=== PATIENT | female | born 1950 | race Caucasian/White ===

== ENCOUNTER → 2018-01-06 08:26 | Outpatient (CLI) | payer BC, MEDICARE, SELFPAY ==
[2018-01-06 11:00] LABS: ALB/GLOB Ratio 0.9 RATIO (0.9-2.4); AST(SGOT) 16 U/L (15-37); Alanine Aminotransfer ALT/SGPT 31 U/L (13-56); Albumin, Serum 3.4 g/dL (3.2-5.0); Alkaline Phosphatase 81 U/L (45-117); Anion Gap 6 (5-15); BUN 15 mg/dL (7-18); BUN/Creat Ratio 20.7 RATIO (10-20); Calcium,Total 8.6 mg/dL (8.5-10.1); Chloride 108 mmol/L (98-107); Cholesterol 184 mg/dL (200); Creatinine, Serum 0.72 mg/dL (0.55-1.02); EST Glomerular Filtration Rate 85 mL/min (>60); Est Glom Filt Rate - Afr Amer 103 mL/min (>60); Globulin 3.6 g/dL (2.2-4.2); Glucose 84 mg/dL (74-106); High Density Lipoprotein 76 mg/dL; Potassium 4.1 mmol/L (3.5-5.1); Sodium Level 144 mmol/L (136-145); Thyroid Stim Hormone (TSH) 0.31 uIU/mL (0.358-3.74); Triglycerides 60 mg/dL; Very Low Density Lipoprotein 12 mg/dL (5-40)
== END ==
PROVIDERS: Family Provider Family Medicine; PCP Family Medicine; Visit Provider Family Medicine
DX: Z00.00 Encounter for general adult medical examination without abnormal findings (principal); C73 Malignant neoplasm of thyroid gland
CPT/HCPCS: 36415; 80053; 80061; 84443; J2405

== ENCOUNTER 2018-01-26 05:59 | Day surgery (SDC) | payer BC, MEDICARE, SELFPAY ==
--- NOTE | 2018-01-26 | VAGMU_PTH ---
PATIENT: RAHCEL HARE [place] [facility] [id number] AGE/SX: 67/F ROOM: RE01/26/[address]: Dr. Nahid Mota MD : [id number] BED: DIS: 01/27/2018 SPEC #: [id number] RECD: 01/26/18 10:15 STATUS: THADDEUS SWANSONJonh #: [id number] MIC: 01/26/18 00:[address]: Nahid Mota DEPT: SURGICAL PATHOLOGY RECD BY: Paul Galeano ENTERED: 01/26/18 10:16 SP TYPE: VAG MUCOSA OTHR DR: Dr. 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 No evidence of dysplasia. Negative for fungal organisms. AM:tommy 01/27/18 COMMENT GMS stain with matched control is negative for fungal organisms. Case has been reviewed in consultation with Dr. Welch who concurs with the above diagnosis. IDC:HUNTER MICROSCOPIC DESCRIPTION Slides are reviewed. GROSS DESCRIPTION Received in fixative is one container labeled with the patient's name and designated vaginal mucosa. The specimen consists of multiple pieces of moctezuma focally congested mucosal tissue that in aggregate measure 10 x 6 x 1.5 cm. No mass lesion is identified. Road Machinery Inspector sections are submitted in two cassettes. / SJ:tommy 01/26/18 TC:2 CPT: 89886, 81699
--- NOTE | 2018-01-26 05:59 | DT_ITS ---
This patient was seen during an EMR downtime January 19, 2018 - January 26, 2018. This patient may have a combination of paper and electronic documentation or all paper documentation. All documentation is viewable within the e-chart portion of [employer] for each patient visit.
[2018-01-26 10:45] VITALS: BP 95/54; PULSE 49; RESP 16; TEMP 36.4; O2SAT 95
[2018-01-26 10:54] VITALS: BMI 20.9
[2018-01-26 10:55] VITALS: PULSE 52
[2018-01-26] MEDS: Dextrose 5%-Lactated Ringers 1,000 ML 125 ML IV ×2 (10:55→18:57)
--- NOTE | 2018-01-26 11:26 | EKG12_ITS ---
Test Reason : PRE-OP Blood Pressure : / mmHG Vent. Rate : 060 BPM Atrial Rate : 060 BPM P-R Int : 146 ms QRS Dur : 088 ms QT Int : 410 ms P-R-T Axes : 082 079 064 degrees QTc Int : 410 ms Normal sinus rhythm Nonspecific T wave abnormality Abnormal ECG When compared with ECG of 29-MAY-2015 13:52, No significant change was found Confirmed by RAPHAEL GONG, JONATAN ([id number]), advertising editor JOSE CARLOS SCHROEDER ([id number]) on 01/29/2018 4:34:27 PM Referred By: Nahid Mota Confirmed By:JONATAN LIM MD
[2018-01-26 12:40] VITALS: BP 98/65; PULSE 53; RESP 16; TEMP 36.4; O2SAT 98
[2018-01-26] MEDS: Ketorolac 15 MG/ML Vial IV ×2 (13:10→18:57)
[2018-01-26 13:34] VITALS: O2SAT 99
[2018-01-26 14:43] VITALS: BP 101/60; PULSE 63; RESP 16; TEMP 36.7; O2SAT 98
--- NOTE | 2018-01-26 16:43 | CASEMGMT ---
Social Work Note Chaplain Naik spoke to this worker about pt. Gumaro states that pt has financial, transportation and legal concerns at this time. Gumaro states that pt's left pt but they never got a divorce and pt's is currently in long-term and receiving a pension, but that pt is unable to receive any of the pension money. 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 Gumaro states that pt has to pay for a cab to take her to and from work. Gumaro states that pt will also have a hospital bill. SW in to meet with pt. SW introduced self and role at [facility]. Pt is alert and orientated x4. SW spoke with pt about her currently difficulties and provided pt with resource packet. SW provided pt with [employer] [place] [address] resource, [facility] [employer] [facility], prescription assistance programs, HCAP application for [facility], and transportation information in [place]. Pt states that she has tried to utilize [employer] but states that she makes too much. SW states understanding and provided support to pt. SW encouraged pt to reach out to resources in the community to see if she is able to get assistance. Pt states understanding. Pt states that she is concerned that she doesn't qualify because she makes too much and that a lot of the places will required her to meet with them at their agency or talk to them on the phone. SW encouraged pt to reach out to local resources to learn more about services offered and see if any of the resources will be able to meet with pt in her home and discuss services. SW asked pt if she would have any family to provide transportation to her if needed to the agencies. Pt states that she used to pay her nephew to take her places but she works second shift and he works first. SW states understanding and once again encouraged pt to reach out to local agencies and resources to utilize any support and resources that pt is able to receive. SW informed pt that she may need to get a equipment operating engineer involved to see what she is entitled to in regards to financial resources from . Pt states understanding. Pt asked for the address of [employer] [facility] [employer]. SW provided pt with address to [employer] [facility] [employer]. Pt denied additional needs or concerns at this time. Plan: Pt to return home at discharge and follow up with local resources if needed. Pt was provided packet of local resources in the community. Blanquita Sheffield SUPERVISOR LOGGING, REHAB CONSULTANT
--- NOTE | 2018-01-26 16:48 | CHAPLAIN ---
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
[2018-01-26] MEDS: 0.9% NaCl Peripheral Flush Adult/Peds IV (18:57)
[2018-01-26 22:25] VITALS: BP 110/47; PULSE 69; RESP 16; TEMP 36.9; O2SAT 95
[2018-01-27] MEDS: Ketorolac 15 MG/ML Vial IV ×2 (00:23→06:13)
[2018-01-27 04:15] VITALS: BP 114/60; PULSE 57; RESP 16; TEMP 36.5; O2SAT 96
[2018-01-27 05:51] LABS: Hematocrit 35.9 % (37-47); Hemoglobin 11.9 g/dl (12.0-15.0); Mean Corp Hgb Conc 33.1 g/gl (32-36); Mean Corpuscular Volume 93.5 fL (81-99); Mean Platelet Vol. 9.7 fl (6.2-12.0); Platelet Count 177 K/mm3 (150-450); RBC Distribution Width CV 13.1 % (11.6-14.6); RBC Distribution Width SD 44.6 fl (35.1-43.9); Red Blood Count 3.84 M/mm3 (4.2-5.4); White Blood Count 7.6 K/mm3 (4.4-11.0)
[2018-01-27 05:59] LABS: Scan Indicated on CBC? Y/N NO
[2018-01-27 06:00] LABS: Hematocrit 42.1 % (37-47); Hemoglobin 14.1 g/dl (12.0-15.0); Mean Corp Hgb Conc 33.5 g/gl (32-36); Mean Corpuscular Hgb 31.8 pg (27.0-32.0); RBC Distribution Width CV 12.9 % (11.6-14.6); Red Blood Count 4.43 M/mm3 (4.2-5.4); White Blood Count 5.6 K/mm3 (4.4-11.0)
[2018-01-27 06:01] LABS: BUN 24 mg/dL (7-18); Glucose 69 mg/dL (74-106); Mean Platelet Vol. 10.1 fl (6.2-12.0); Partial Thromboplast Time 31.4 Seconds (24.1-36.2); Platelet Count 241 K/mm3 (150-450); Prothrombin Time (Protime)PT. 13.3 SECONDS (11.7-14.9); RBC Distribution Width SD 43.6 fl (35.1-43.9); Scan Indicated on CBC? Y/N NO
[2018-01-27 06:02] LABS: AST(SGOT) 17 U/L (15-37); Alanine Aminotransfer ALT/SGPT 30 U/L (13-56); Albumin, Serum 3.5 g/dL (3.2-5.0); Alkaline Phosphatase 88 U/L (45-117); Anion Gap 6 (5-15); BUN/Creat Ratio 32.4 RATIO (10-20); Calcium,Total 8.3 mg/dL (8.5-10.1); Chloride 105 mmol/L (98-107); Creatinine, Serum 0.74 mg/dL (0.55-1.02); EST Glomerular Filtration Rate 83 mL/min (>60); Est Glom Filt Rate - Afr Amer 101 mL/min (>60); Globulin 3.4 g/dL (2.2-4.2); Potassium 4.4 mmol/L (3.5-5.1); Protein, Total 6.9 g/dL (6.4-8.2); Sodium Level 141 mmol/L (136-145); Thyroid Stim Hormone (TSH) 0.59 uIU/mL (0.358-3.74)
[2018-01-27] MEDS: 0.9% NaCl Peripheral Flush Adult/Peds IV ×2 (06:03→06:13)
[2018-01-27 06:12] LABS: Creatinine, Serum 0.82 mg/dL (0.55-1.02); EST Glomerular Filtration Rate 73 mL/min (>60); Est Glom Filt Rate - Afr Amer 88 mL/min (>60)
[2018-01-27] MEDS: Levothyroxine 100 MCG Tablet PO (06:16)
[2018-01-27 07:45] VITALS: O2SAT 96
[2018-01-27 08:37] VITALS: BP 128/63; PULSE 63; RESP 18; TEMP 36.1; O2SAT 98
[2018-01-27 11:09] VITALS: BP 123/73; PULSE 68; RESP 18; TEMP 36.4; O2SAT 100
== END 2018-01-27 11:27 | disposition home or self-care (01) ==
LOC: SDC 06:00 → MS3 01-27 09:56
PROVIDERS: Family Provider Family Medicine; PCP Family Medicine; Visit Provider Obstetrics & Gynecology
PROC: (CPT 57260; principal; 2018-01-26 07:15)
DX: N99.3 Prolapse of vaginal vault after hysterectomy (principal); Z79.899 Other long term (current) drug therapy; E03.9 Hypothyroidism, unspecified; Z85.850 Personal history of malignant neoplasm of thyroid; R00.1 Bradycardia, unspecified; G25.81 Restless legs syndrome
CPT/HCPCS: 57260; 36415; 80053; 82565; 84443; 85027; 85610; 85730; 86850; 86900; 88304; 88312; 93005; J7120; A4216

== ENCOUNTER → 2018-02-03 14:00 | Outpatient (CLI) | payer BC, SELFPAY ==
--- NOTE | 2018-02-03 14:04 | BI_ITS ---
MAMMOGRAPHY - BILATERAL SCREENING REASON FOR EXAM: Female, 67 years old. Routine annual screening examination. PERTINENT HISTORY: Aunt with breast cancer. TECHNIQUE: Digital bilateral breast oskar (3D mammographic acquisition) in the CC and MLO projections. 2-D mediolateral oblique (MLO) and craniocaudad (CC) views of both breasts were obtained. CAD: Full Field Digital Mammography with Computer Added Detection was performed. COMPARISON: Comparison is made with prior outside examination dated May 16, 2017. FINDINGS: Breast Composition: There are scattered areas of fibroglandular density. There are no dominant masses or suspicious calcifications. No other significant abnormalities are identified. There has been no significant change since the prior study. BI/SCREENING MAMM (CAD), BILAT IMPRESSION: Stable bilateral screening mammogram. Yearly follow-up mammogram recommended. (A) ASSESSMENT CATEGORY: BIRADS Category 1: Negative. A letter regarding these results will be sent to the patient by the facility within 30 days. Approximately 10% of breast cancers are not detected by mammography. A normal mammogram should not delay biopsy of a clinically suspicious abnormality. [id number] Electronically Signed: Matt Marion MD at 9:31 EDT Tel [phone], Service support ,
--- NOTE | 2018-02-03 14:15 | BD_ITS ---
STUDY: DUAL ENERGY X-RAY ABSORPTIOMETRY / DXA REASON FOR EXAM: Female, 67 years old. The patient is postmenopausal. Loss of height. TECHNIQUE: Bone Mineral Density (BMD) measurements of lumbar spine and left forearm were obtained. COMPARISON: None. FINDINGS: Lumbar Spine (L1-L4): g/cm2 (1.075) / T-score (-0.9) / Z-score (0.8) Findings are suggestive of normal bone density with a low fracture risk. Left Forearm: g/cm2 (0.744) / T-score (-1.5) / Z-score (0.2) BD/Dexa Bone Density Study IMPRESSION: The patient is considered osteopenic as outlined below according to World John Organization (WHO) criteria with a moderate fracture risk. Reference Information: The T-score is the number of standard deviations above or below the standard which is normal for young adults at their peak bone mineral density. The World Health Organization (WHO) interprets the T-scores as follows: Above -1 Normal bone density Between -1 and -2.5 Osteopenia Equal to / or below -2.5 Osteoporosis As a practical clinical guideline, osteopenia may be graded as follows: Mild -1 through -1.5 Moderate -1.6 through -2.0 Severe -2.1 through -2.4 The Z-score is the number of standard deviations above or below age-matched controls. A Z-score of less than -1.5 would be considered abnormal. References: 1. NIH Osteoporosis and Related Bone Diseases http://www.osteo.org 2. International Society for Clinical Densitometry http://www.iscd.org 3. National Osteoporosis Foundation http://www.nof.org Electronically Signed: Matt Marion MD at 8:51 EDT Tel [phone], Service support ,
== END ==
PROVIDERS: Family Provider Family Medicine; PCP Family Medicine; Visit Provider Family Medicine
DX: Z12.31 Encounter for screening mammogram for malignant neoplasm of breast (principal); N95.9 Unspecified menopausal and perimenopausal disorder
CPT/HCPCS: 77063; 77067; 77080

== ENCOUNTER 2018-05-04 13:34 | Emergency (ER) | payer BC, SELFPAY ==
[2018-05-04 13:34] VITALS: BP 130/71; PULSE 73; RESP 16; TEMP 36.7; O2SAT 97; BMI 21.1
--- NOTE | 2018-05-04 13:49 | ED.VISSUMM ---
- ER Visit Summary Date of Service: 05/04/18 Chief Complaint: Left shoulder itching History of Present Illness: The patient is a 67 F presents to the emergency department with left shoulder itching. Patient states Friday night, she thinks that she was stuck by a wasp. She thinks that there is still stinger in there because she is continued to have itching. She denies any fevers or chills. She has a history of anaphylaxis. The patient is only on thyroid medication. She states she put some rubbing alcohol and it was seem to make the area feel better, but she was still itching today. Physical Examination: Exam is relatively unremarkable. Patient does have a 1.5 cm ovoid area of erythema overlying the left collarbone. There does appear to be retained stinger in the area. There is no streaking. There is no cellulitis. Her lungs are clear. She has no wheezing. Oropharynx is widely patent. Test Results: [] Emergency Department Course and Treatment: The area was anesthetized locally. I did remove the area that seem to be retained invagination. The patient has no significant reaction. She will continue Benadryl and topical treatment as needed. She will be discharged home. Treatment Plan: [] Disposition: Discharge Impression: Local reaction to bee envenomation This note was generated with [employer] dictation software. It may contain incorrect words, spelling, and punctuation that were not noted in review of the chart prior to signing ED Disposition - Plan for ED Patient: Chief Complaint: Itching Instructions: ED Bite Sting Insect Local Allergic React Referrals: Hermann Lopes MD [Primary Care Provider] -
== END 2018-05-04 14:57 | disposition home or self-care (01) ==
PROVIDERS: Emergency Provider Emergency Medicine; Family Provider Family Medicine; PCP Family Medicine
DX: T63.441A Toxic effect of venom of bees, accidental (unintentional), initial encounter (principal); L53.0 Toxic erythema; L29.9 Pruritus, unspecified; Y92.89 Other specified places as the place of occurrence of the external cause; Z79.899 Other long term (current) drug therapy
CPT/HCPCS: 99282

== ENCOUNTER 2018-10-20 22:00 | Emergency (ER) | payer OTHER, SELFPAY ==
[2018-10-20 22:02] VITALS: BP 119/69; PULSE 66; RESP 16; TEMP 36.7; O2SAT 99
--- NOTE | 2018-10-20 22:39 | ED.VISSUMM ---
- ER Visit Summary Date of Service: 10/20/18 Chief Complaint: Chest wall injury History of Present Illness: The patient is a 68 F presents from work for evaluation of chest wall injury occurring 8:45 PM this evening. 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 Initially short of breath however currently resolved. Pain subsided. No head injuries. No falls. No neck or back pain. No extremity pain. Came here for evaluation. Physical Examination: General: Alert and oriented ?3, no acute distress HEENT: Normocephalic, atraumatic. Moist mucosa membranes Neck: supple, nontender. Cardiovascular: Regular rate and rhythm, no murmurs. Chest wall is nontender with no crepitus. No ecchymosis. Minimal erythema sternum. Respiratory: Normal breath sounds, symmetric, no distress Abdomen: Soft, nontender, nondistended Extremities: Nontender, no edema, pulses intact ?4 Neuro: no focal neurological deficits. Test Results: Chest x-ray: No acute process Emergency Department Course and Treatment: Patient vitals stable, declined any medications. Do not reproduce any pain symptoms. With her concerns chest x-ray obtained shows no acute process. Patient cleared to go back to work. She can follow-up with [facility] if needed. Treatment Plan: [] Disposition: Discharge Impression: Chest wall contusion This note was generated with [employer] dictation software. It may contain incorrect words, spelling, and punctuation that were not noted in review of the chart prior to signing ED Disposition - Plan for ED Patient: Disposition: Home or Assisted Living Diagnosis: Chest wall contusion Instructions: ED Contusion Chest Wall Referrals: Hermann Lopes MD [Primary Care Provider[facility] OF PHYSIC[facility]] - 3-5 Days
--- NOTE | 2018-10-20 22:45 | RAD_ITS ---
STUDY: X-RAY CHEST REASON FOR EXAM: Female, 68 years old. Posttraumatic pain TECHNIQUE: PA and lateral COMPARISON: June 07, 2015 FINDINGS: In general the lungs are hyperinflated however there is mild prominence of the markings in the right lower lobe which may be consistent with subsegmental atelectasis. There is no demonstrated pleural abnormality. Normal size heart. Normal mediastinum and sharon. Normal visualized pulmonary arteries. Normal visualized aortic arch and descending thoracic aorta. Normal visualized thoracic spine. Normal visualized ribs, clavicles, and shoulders. There is no demonstrated abnormality of the visualized soft tissue structures of the upper abdomen. The prominence of the markings in the right lower lobe are new finding since prior exam RAD/Chest PA and Lateral IMPRESSION: Mild hyperinflation and mild prominence of the markings in the right lower lobe consistent with mild subsegmental atelectasis.. Electronically Signed: Rahele Calvin MD at 23:02 EST , Service support ,
== END 2018-10-20 23:31 | disposition home or self-care (01) ==
PROVIDERS: Emergency Provider Emergency Medicine; Family Provider Family Medicine; PCP Family Medicine
DX: S20.219A Contusion of unspecified front wall of thorax, initial encounter (principal); Z79.899 Other long term (current) drug therapy; W20.8XXA Other cause of strike by thrown, projected or falling object, initial encounter; Y93.89 Activity, other specified; Y92.89 Other specified places as the place of occurrence of the external cause; Y99.0 Civilian activity done for income or pay
CPT/HCPCS: 71046; 99282

== ENCOUNTER → 2019-02-26 | Outpatient (CLI) | payer BC, SELFPAY ==
[2018-10-23 14:43] VITALS: BMI 17.2
[2019-02-26 14:28] LABS: International Normalized Ratio 1.1; Prothrombin Time (Protime)PT. 13.8 SECONDS (11.7-14.9)
[2019-02-26 14:29] LABS: Absolute Lymphocyte Count 1.45 X10^3/ul (0.83-4.51); Basophil# 0.03 X10^3/uL; Basophil% 0.8 % (0-1); Eosinophil# 0.09 X10^3/uL; Eosinophils% 2.3 % (0-5); Hematocrit 39.3 % (37-47); Hemoglobin 13.2 g/dl (12.0-15.0); Lymphocyte # 1.45 X10^3/ul (4.0); Lymphocyte % 36.3 % (19-41); Mean Corp Hgb Conc 33.6 g/gl (32-36); Mean Corpuscular Hgb 31.7 pg (27.0-32.0); Mean Corpuscular Volume 94.2 fL (81-99); Mean Platelet Vol. 10.6 fl (6.2-12.0); Monocyte# 0.47 X10^3/uL; Monocyte% 11.8 % (0-10); Neutrophil # 1.96 X10^3/uL (2.7-7.7); Neutrophil % 48.8 % (47-70); Platelet Count 206 K/mm3 (150-450); Red Blood Count 4.17 M/mm3 (4.2-5.4)
[2019-02-26 14:31] LABS: POSITIVE COUNT NO; POSITIVE DIFFERENTIAL NO; POSITIVE MORPHOLOGY NO
[2019-02-26 14:36] LABS: ALB/GLOB Ratio 1.2 RATIO (0.9-2.4); AST(SGOT) 23 U/L (15-37); Alanine Aminotransfer ALT/SGPT 49 U/L (13-56); Albumin, Serum 3.7 g/dL (3.2-5.0); Alkaline Phosphatase 85 U/L (45-117); Anion Gap 5 (5-15); BUN 22 mg/dL (7-18); BUN/Creat Ratio 32.3 RATIO (10-20); Chloride 105 mmol/L (98-107); Creatinine, Serum 0.68 mg/dL (0.55-1.02); EST Glomerular Filtration Rate 91 mL/min (>60); Est Glom Filt Rate - Afr Amer 110 mL/min (>60); Free T3 1.9 pg/mL (2.18-3.98); Glucose 86 mg/dL (74-106); Lipase 238 U/L (73-393); Prealbumin 18.4 mg/dL (20.0-40.0); Protein, Total 6.7 g/dL (6.4-8.2); Sodium Level 141 mmol/L (136-145); T4 Free Direct 1.35 ng/dL (0.76-1.46); Thyroid Stim Hormone (TSH) 0.41 uIU/mL (0.358-3.74)
[2019-03-01 16:07] LABS: Endomysial Antibody IgA Negative (Negative)
[2019-03-02 12:28] LABS: Deamidated Gliadin IgA 5 units (0-19); Deamidated Gliadin IgG 2 units (0-19); Immunoglobulin A 229 mg/dL (87-352); t-Transglutaminase IgA <2 U/mL (0-3)
== END | disposition home or self-care (01) ==
LOC: MFPLAB 12:16
PROVIDERS: Family Provider Family Medicine; PCP Family Medicine; Visit Provider Family Medicine
DX: E03.9 Hypothyroidism, unspecified (principal); R63.4 Abnormal weight loss
CPT/HCPCS: 36415; 80053; 82784; 83516; 83690; 84134; 84439; 84443; 84481; 85025; 85610; 86255

== ENCOUNTER 2019-03-20 21:12 | Emergency (ER) | payer OTHER, SELFPAY ==
[2018-10-23 14:43] VITALS: BMI 17.2
[2019-03-20 21:14] VITALS: BP 100/61; PULSE 72; RESP 18; TEMP 36.6; O2SAT 98; BMI 19.9
--- NOTE | 2019-03-20 22:49 | CT_ITS ---
HISTORY: Status post fall with headache COMPARISON: None. TECHNIQUE: Helical CT axial images are obtained from the base of skull through the vertex without IV contrast. Multiplanar reconstruction. A radiation dose optimization technique was used for this scan. # of images incl. paperwork: 240 FINDINGS: BRAIN: No parenchymal hemorrhage, infarct, intra-axial mass, mass effect, or midline shift. No abnormal extra-axial fluid collections. VENTRICLES: Ventricles are normal in size and configuration. No hydrocephalus. CALVARIUM: Minimal left posterior parietal scalp soft tissue swelling. Bone windows show no skull fracture or calvarial lesions. PARANASAL SINUSES AND MASTOIDS: Visualized paranasal sinuses are clear. Visualized mastoid air cells are clear. ASPECTS Score for Acute Strokes: 10 CT/Brain/Head without Contrast IMPRESSION: 1. Minimal left posterior parietal scalp soft tissue swelling. 2. No acute intracranial disease. Individualized dose optimization techniques were used for this CT. at 0000 Reported and signed by: Felton Modi MD Electronically Signed: Felton Modi MD at 23:59 EDT Tel , Service support ,
--- NOTE | 2019-03-20 22:49 | RAD_ITS ---
HISTORY: Status post fall with left hip pain XR Hip Unilateral with Pelvis when performed; 2-3 Views TECHNIQUE: 3 views # of images incl. paperwork: 3 COMPARISON: 06/06/2015 FINDINGS: BONES/JOINTS: Intact appearing total left hip arthroplasty. Heterotopic bone formation subjacent to the greater trochanter again noted. No abnormal lucency surrounding the hardware. Partially seen intact total right hip arthroplasty. Remainder of the bony pelvis is intact. Sacroiliac joints are unremarkable. Moderate degenerative changes of visualized lower lumbar spine. SOFT TISSUES: Soft tissues appear unremarkable. No radiopaque foreign body. RAD/HIP, UNI W/ Pelvis 2-3 Views IMPRESSION: 1. No acute fracture. 2. Intact total left hip arthroplasty. 3. Partially seen intact total right hip arthroplasty. at 2356 Reported and signed by: Felton Modi MD Electronically Signed: Felton Modi MD at 23:54 EDT Tel , Service support ,
--- NOTE | 2019-03-20 22:49 | RAD_ITS ---
HISTORY: Status post fall with left knee pain XR Knee Complete 4 Views or More TECHNIQUE: 4 views # of images incl. paperwork: 4 COMPARISON: None. FINDINGS: BONES/JOINTS: No acute fracture or dislocation. Moderate tricompartment osteoarthritis. SOFT TISSUES: Moderate size suprapatellar joint effusion. Mild medial knee soft tissue swelling. No radiopaque foreign body. RAD/Knee 4 or More Views IMPRESSION: 1. No acute fracture. Mild medial knee soft tissue swelling. 2. Moderate tricompartment osteoarthritis. 3. Moderate joint effusion. 4. at 0003 Reported and signed by: Felton Modi MD Electronically Signed: Felton Modi MD at 0:02 EDT Tel , Service support ,
--- NOTE | 2019-03-20 22:51 | ED.DCSUM_ITS ---
- ER Visit Summary Date of Service: 03/20/19 Chief Complaint: Fall History of Present Illness: The patient is a 68 F who presents after a fall. While at work today she was cleaning a bathroom and floor was wet. She slipped. She hit her left hip and knee as well as the left side of her head. She does believe there was a brief loss of consciousness. This was several hours ago earlier in the afternoon. She is not on any anticoagulation. She denies fevers, chest pain, shortness of breath, abdominal pain, back pain. She has been able to ambulate although she is limping. No paresthesias. No weakness. No headache. She complains of pain just at the site directly where she hit her head. Physical Examination: Afebrile vitals normal Patient does have a left scalp abrasion Neck is nontender to palpation Active full range of motion x4 extremities she does have some contusion on the left hip/buttock no appreciable knee effusion she is able to ambulate normal strength and sensation Heart regular rate and rhythm Lungs are clear Abdomen soft and nontender GCS of 15 with no focal or lateralizing neurological deficits Test Results: Left hip x-ray shows no fracture, total hip arthroplasty. Left knee x-ray shows no acute fracture there is moderate osteoarthritis and moderate joint effusion. CT the head shows no acute intracranial disease, no hemorrhage. Emergency Department Course and Treatment: Work-up as above is unremarkable. Patient was advised on supportive care. She understands return for new or worsening symptoms. She was discharged. Treatment Plan: [] Disposition: Discharge Impression: Closed head injury Left hip contusion Left knee sprain This note was generated with [employer] dictation software. It may contain incorrect words, spelling, and punctuation that were not noted in review of the chart prior to signing ED Disposition - Plan for ED Patient: Referrals: Hermann Lopes MD [Primary Care Provider] -
[2019-03-20 23:57] VITALS: BP 114/56; PULSE 51; RESP 15
--- NOTE | 2019-03-21 00:13 | ED.DEP ---
ED Disposition - Plan for ED Patient: Instructions: FALL, Mechanical, HEAD INJURY, No Wake-Up (Adult), CONTUSION, Lower Extremity, Knee Sprain Referrals: Hermann Lopes MD [Primary Care Provider] -
[2019-03-21 00:33] VITALS: RESP 15
== END 2019-03-21 00:33 | disposition home or self-care (01) ==
LOC: ED 22:44
PROVIDERS: Emergency Provider Emergency Medicine; Family Provider Family Medicine; PCP Family Medicine
DX: S00.01XA Abrasion of scalp, initial encounter (principal); S70.02XA Contusion of left hip, initial encounter; S83.92XA Sprain of unspecified site of left knee, initial encounter; Z96.642 Presence of left artificial hip joint; Z86.73 Personal history of transient ischemic attack (TIA), and cerebral infarction without residual deficits; W01.0XXA Fall on same level from slipping, tripping and stumbling without subsequent striking against object, initial encounter; Y93.E5 Activity, floor mopping and cleaning; Y92.89 Other specified places as the place of occurrence of the external cause; Y99.0 Civilian activity done for income or pay
CPT/HCPCS: 70450; 73502; 73564; 99282

== ENCOUNTER → 2020-05-05 12:34 | Outpatient (CLI) | payer MEDICARE, SELFPAY ==
[2019-09-17 14:12] VITALS: BMI 19.9
[2020-05-05 15:51] LABS: Absolute Lymphocyte Count 1.56 X10^3/uL (0.83-4.51); Absolute Neutrophil Count 2.2 X10^3/uL (2.0-7.7); Basophil# 0.05 X10^3/uL; Basophil% 1.2 % (0-1); Eosinophil# 0.08 X10^3/uL; Eosinophils% 1.8 % (0-5); Hematocrit 40.4 % (37-47); Hemoglobin 12.9 g/dL (12.0-15.0); Lymphocyte # 1.56 X10^3/ul (4.0); Lymphocyte % 35.9 % (19-41); Mean Corp Hgb Conc 31.9 g/dL (32-36); Mean Corpuscular Hgb 30.4 pg (27.0-32.0); Mean Corpuscular Volume 95.3 fL (81-99); Mean Platelet Vol. 10.2 fl (6.2-12.0); Monocyte# 0.44 X10^3/uL; Monocyte% 10.1 % (0-10); NRBC Flagged by Analyzer 0 % (0-5); Neutrophil % 50.8 % (47-70); Platelet Count 249 K/mm3 (150-450); RBC Distribution Width CV 12.9 % (11.6-14.6); RBC Distribution Width SD 44.7 fl (35.1-43.9); Red Blood Count 4.24 M/mm3 (4.2-5.4); White Blood Count 4.3 K/mm3 (4.4-11.0)
[2020-05-05 16:16] LABS: ALB/GLOB Ratio 1.1 RATIO (0.9-2.4); AST(SGOT) 17 U/L (15-37); Alanine Aminotransfer ALT/SGPT 27 U/L (13-56); Albumin, Serum 3.8 g/dL (3.2-5.0); Alkaline Phosphatase 78 U/L (45-117); Anion Gap 6 (5-15); BUN 17 mg/dL (7-18); BUN/Creat Ratio 15.7 RATIO (10-20); Calcium,Total 8.9 mg/dL (8.5-10.1); Chloride 101 mmol/L (98-107); Creatinine, Serum 1.08 mg/dL (0.55-1.02); EST Glomerular Filtration Rate 53 mL/min (>60); Est Glom Filt Rate - Afr Amer 64 mL/min (>60); Globulin 3.4 g/dL (2.2-4.2); Glucose 87 mg/dL (74-106); Potassium 3.7 mmol/L (3.5-5.1); Protein, Total 7.2 g/dL (6.4-8.2); Sodium Level 138 mmol/L (136-145); Thyroid Stim Hormone (TSH) 0.53 uIU/mL (0.358-3.74)
[2020-05-08 08:02] LABS: PTHIN 37.7 pg/mL (18.4-80.1)
== END ==
PROVIDERS: PCP Family Medicine; Referring Provider Family Medicine; Visit Provider Family Medicine
DX: E03.9 Hypothyroidism, unspecified (principal); R40.4 Transient alteration of awareness
CPT/HCPCS: 36415; 80053; 83970; 84443; 85025

== ENCOUNTER → 2020-06-23 06:43 | Outpatient (CLI) | payer MEDICARE, SELFPAY ==
[2019-09-17 14:12] VITALS: BMI 19.9
--- NOTE | 2020-06-23 08:16 | TELEMED_ITS ---
[facility] Tele[facility] has confirmed receipt of a request for visit. This document confirms receipt of the order initiating the consult. To find the results of the consultation, please view the patient's reports for the scanned Telemed Consult.
== END ==
PROVIDERS: PCP Family Medicine; Referring Provider Family Medicine; Visit Provider Family Medicine
DX: R40.4 Transient alteration of awareness (principal)
CPT/HCPCS: 95819

== ENCOUNTER → 2021-05-28 14:15 | Outpatient (CLI) | payer MEDICARE, SELFPAY ==
[2021-05-28 18:03] LABS: Creatinine, Serum 0.63 mg/dL (0.55-1.02); EST Glomerular Filtration Rate 99 mL/min (>60); Est Glom Filt Rate - Afr Amer 120 mL/min (>60); Thyroid Stim Hormone (TSH) 2.71 uIU/mL (0.358-3.74)
== END ==
PROVIDERS: PCP Family Medicine; Referring Provider Family Medicine; Visit Provider Family Medicine
DX: E03.9 Hypothyroidism, unspecified (principal)
CPT/HCPCS: 36415; 82565; 84439; 84443

== ENCOUNTER 2021-08-29 19:51 | Emergency (ER) | payer MEDICARE, SELFPAY ==
[2021-08-29 19:53] VITALS: BP 152/82; PULSE 74; RESP 17; TEMP 37.3; O2SAT 97; BMI 22.0
[2021-08-29 19:59] VITALS: BP 152/82; PULSE 76; RESP 15; TEMP 37.3; O2SAT 97
--- NOTE | 2021-08-29 20:21 | EKG12_ITS ---
Test Reason : SYNCOPE Blood Pressure : / mmHG Vent. Rate : 071 BPM Atrial Rate : 071 BPM P-R Int : 156 ms QRS Dur : 088 ms QT Int : 422 ms P-R-T Axes : 073 057 051 degrees QTc Int : 458 ms Normal sinus rhythm Normal ECG Confirmed by MARCI GONG, YANI ([id number]), editor producer KRISTINE SOW ([id number]) on 08/30/2021 1:33:15 PM Referred By: PRISCILA Confirmed By:ANA PAULA COVARRUBIAS MD
[2021-08-29 20:29] LABS: Absolute Lymphocyte Count 2.69 X10^3/uL (0.83-4.51); Basophil# 0.04 X10^3/uL; Basophil% 0.7 % (0-1); Eosinophil# 0.11 X10^3/uL; Hematocrit 38.1 % (37-47); Hemoglobin 12.9 g/dL (12.0-15.0); Lymphocyte # 2.69 X10^3/ul (0.83-4.51); Lymphocyte % 49.5 % (19-41); Mean Corp Hgb Conc 33.9 g/dL (32-36); Mean Corpuscular Hgb 31.2 pg (27.0-32.0); Mean Platelet Vol. 9.3 fl (6.2-12.0); Monocyte# 0.51 X10^3/uL; Monocyte% 9.4 % (0-10); NRBC Flagged by Analyzer 0 % (0-5); Neutrophil # 2.04 X10^3/uL (2.7-7.7); Neutrophil % 37.7 % (47-70); Platelet Count 231 K/mm3 (150-450); RBC Distribution Width CV 12.4 % (11.6-14.6); RBC Distribution Width SD 41.9 fl (35.1-43.9); Red Blood Count 4.14 M/mm3 (4.2-5.4); White Blood Count 5.4 K/mm3 (4.4-11.0)
--- NOTE | 2021-08-29 20:32 | RAD_ITS ---
INDICATION: chest pain EXAMINATION/TECHNIQUE: X-RAY - XR Chest 1 View COMPARISON: 10/20/2008 chest x-ray FINDINGS: LINES/DEVICES: None. LUNGS: Symmetric normal lung volumes. No airspace opacity or abnormal interstitial pattern. No nodule or mass. No pleural effusion or pneumothorax. There is mildly increased lucency upper lobes suggesting emphysema. MEDIASTINUM AND CARDIOVASCULAR STRUCTURES: Normal size and contour of the cardiomediastinal silhouette. No evidence of pulmonary vascular congestion. Small metallic density proximal left neck likely surgical clip, unchanged compared to prior exam. BONES AND SOFT TISSUES: No abnormality within limits of the exam. RAD/Chest 1 View (Portable) IMPRESSION: 1. No radiographic evidence of acute cardiopulmonary disease. Electronically Signed: Fleton Betancourt DO at 21:03 EST Tel , Service support ,
[2021-08-29 20:50] LABS: Anion Gap 5 (5-15); BUN 29 mg/dL (7-18); BUN/Creat Ratio 39.2 RATIO (10-20); Calcium,Total 9.1 mg/dL (8.5-10.1); Chloride 104 mmol/L (98-107); Creatinine, Serum 0.74 mg/dL (0.55-1.02); EST Glomerular Filtration Rate 82 mL/min (>60); Est Glom Filt Rate - Afr Amer 99 mL/min (>60); Estimated Creatinine Clearance 49.45 ml/min; Glucose 101 mg/dL (74-106); Magnesium 2.5 mg/dL (1.6-2.6); Sodium Level 138 mmol/L (136-145); Thyroid Stim Hormone (TSH) 3.32 uIU/mL (0.358-3.74); Troponin-I HS 7 pg/mL (3.0-54.0)
--- NOTE | 2021-08-29 21:02 | EDS_ITS ---
HPI History of Present Illness Chief Complaint: Syncope Informant: patient and friend Narrative Narrative: Patient was at restoration. She states she was singing quite a bit. She evidently got quickly lightheaded and passed out. It was about 30 seconds. She did not hurt herself. She came to very quickly. She states she never had palpitations or chest pain or shortness of breath. She felt fine. She did say that she thinks she was a little dehydrated. She has not been drinking much fluids. She has been eating well. She did eat today. She even had sardines today which are very salty but did not drink much fluids. She had 1 glass of water in the morning. She states she had a dry mouth all day. She was waiting till after restoration to go drink some fluids. She has had seizures in the past but they have been many years. However she does not feel as though she had a seizure because she has aching in her jaws and tiredness afterwards with seizures. She does not have these feelings. She feels completely back to normal now. [facility] Medical History Arthritis Cancer Chest pain Hemorrhoids History of colon cancer History of thyroid cancer Irregular heart beat Knee pain Loss of consciousness Seizures Shortness of breath Stroke Thyroid disease Weight loss Home Medications ascorbic acid (vitamin C) [Vitamin C] 1,000 mg PO BIDCM 03/04/14 [History Last Taken 03/20/19] calcium carbonate [Caltrate 600] 1,200 mg PO BIDCM 03/04/14 [History Last Taken 03/20/19] cholecalciferol (vitamin D3) 5,000 unit PO DAILY 03/04/14 [History Last Taken 03/20/19] levothyroxine [Levoxyl] 100 mcg PO DAILY 03/04/14 [History Last Taken 03/20/19] multivitamin with folic acid [Thera] 1 tab PO DAILY 03/04/14 [History Last Taken 03/20/19] vitamin B complex 1 ea PO DAILY 03/04/14 [History Last Taken 03/20/19] coenzyme Q10 [Co Q-10] 300 mg PO DAILY 05/29/15 [History Last Taken 03/20/19] Active Enzymes 2 cap PO TID 01/23/18 [History Last Taken 08/03/19] Allergy/AdvReac Type Severity Reaction Status Date / Time latex Allergy Rash Verified 03/20/19 21:13 aspirin AdvReac JUST Verified 03/20/19 21:13 DON'T LIKE IT-DOESN'T HELP codeine AdvReac MADE ME Verified 03/20/19 21:13 FEEL WORSE etodolac [From Lodine] AdvReac GI BLEED Verified 03/20/19 21:13 lactose AdvReac Diarrhea Verified 03/20/19 21:13 naproxen AdvReac GI BLEED Verified 03/20/19 21:13 phenobarbital AdvReac DIDN'T Verified 03/20/19 21:13 HELP MY SEIZURES wheat AdvReac Diarrhea Verified 03/20/19 21:13 Family History Other Arthritis Cancer Heart disease Social History Smoking Status: Never smoker alcohol intake: never ROS ROS ED Constitutional Constitutional ED: Denies chills, fever(s) or subjective Eyes Eyes: Denies blurry vision, change in vision or diplopia ENT ENT ED: Denies rhinorrhea or sore throat Cardiovascular Cardiovascular: Denies chest pain, palpitations or racing heartbeat Respiratory/Chest Respiratory/Chest: Denies cough or dyspnea Gastrointestinal Gastrointestinal: Denies abdominal pain, nausea or vomiting Genitourinary Genitourinary ED: Denies dysuria or hematuria Musculoskeletal Musculoskeletal: Denies arthralgias, back pain, myalgias or neck pain Integumentary Denies rash Neurologic Neurologic: Denies headache(s), paresthesias or weakness Psychiatric Psychiatric: Denies depression Endocrine Endocrinology: Denies polydipsia or polyuria Allergic/Immunologic Allergic/Immunologic ED: Denies mouth swelling or urticaria EXAM Physical Exam Const Vital Signs: 08/29/21 19:53 08/29/21 19:59 08/29/21 20:49 Temperature 99.2 F H 99.2 F H Temperature Source Oral Oral Pulse Rate 74 76 Respiratory Rate 17 15 Respiratory Effort Normal Respiratory Pattern Normal Blood Pressure 152/82 H 152/82 H Blood Pressure Mean 105 105 Pulse Ox 97 97 Oxygen Delivery Method Room Air Room Air Room Air 08/29/21 21:57 Temperature Temperature Source Pulse Rate 67 Respiratory Rate 15 Respiratory Effort Respiratory Pattern Blood Pressure 143/91 H Blood Pressure Mean 108 Pulse Ox 97 Oxygen Delivery Method Room Air Positive well nourished and well developed General Appearance ED: well developed and NAD; Negative for cyanotic, diaphoretic or pallor HEENT Reports dry mucous membranes Negative for trauma Mouth ED: Yes dry mucous membranes Mouth: dry mucous membranes Eyes General Eye ED: Negative for pale conjunctiva or scleral icterus Neck no JVD Chest Wall inspection of chest normal Resp normal respiratory effort and clear to auscultation bilaterally Effort and Inspection: Negative for pain with movement Auscultation: Negative for rales, rhonchi or wheezes Cardio regular rate and regular rhythm GI normal to inspection, nondistended, normoactive bowel sounds and non-tender GI Narrative: No mass or bruit. Palpation: soft Back/Spine no CVA tenderness Extremity normal to inspection Extremity Narrative: Peripheral pulses intact. No distended veins. No asymmetry. General Extremety ED: Negative for edema or tenderness General Extremity: Negative for edema Neuro oriented x3 Neuro Narrative: Patient is very awake alert and appropriate. NIH of 0. She has excellent remote memory for everything that she ate and drank today. She is a very detailed informant. Sensorium / Orientation: alert Psych mental status grossly normal Skin no rashes or lesions noted and no wounds General Skin Exam: Negative for jaundice or pallor MDM MDM MDM Narrative Medical decision making narrative: Patient CBC is normal including white count hemoglobin and platelets. Electrolytes show no acute process except a relatively high BUN. She has a rather high BUN to creatinine ratio of almost 40-1. Troponin is negative. TSH is normal. Patient's history is consistent with dehydration. Her exam does show some mildly dry mouth. Her labs also point to dehydration. She is given fluids here. We will get her up and walk around and see how she feels. She generally has been feeling fine. She denied any palpitations or chest pain. She has no history of heart disease or congestive heart failure. She has not had any black or bloody stools. Patient's first troponin is 7 and her second is 9. This has significant negative predictive value for NSTEMI. Her symptoms were transient. I think this was likely combination of singing causing increased chest pressure and vagal symptoms along with some mild dehydration. She is given IV fluids. Patient now states that she had a little bit of burning in her abdomen when she went to the bathroom. She is not urinating more. She has no fevers chills. No nausea vomiting. Repeat exam of her abdomen is completely benign. There is no tenderness whatsoever. We will add and check a urinalysis at this time. Even if this shows an infection I think she can go home but we would add antibiotics at that time. I am pending this result right now. Lab Data Attestation: I reviewed the patient's lab results. Labs: Laboratory Results - last 24 hr 08/29/21 08/29/21 08/29/21 20:00 20:00 22:03 WBC 5.4 RBC 4.14 L Hgb 12.9 Hct 38.1 MCV 92.0 MCH 31.2 MCHC 33.9 RDW Std Deviation 41.9 RDW Coeff of Henna 12.4 Plt Count 231 MPV 9.3 Immature Gran % (Auto) 0.700 Neut % (Auto) 37.7 L Lymph % (Auto) 49.[address] [place] % (Auto) 9.4 Eos % (Auto) 2.0 Baso % (Auto) 0.7 Absolute Neuts (auto) 2.0 Absolute Lymphs (auto) 2.69 Nucleated RBC % 0 Sodium 138 Potassium 4.0 Chloride 104 Carbon Dioxide 29.0 Anion Gap 5 BUN 29 H Creatinine 0.74 Estim Creat Clear Calc 49.45 Est GFR (MDRD) Af Amer 99 Est GFR (MDRD) Non-Af 82 BUN/Creatinine Ratio 39.2 H Glucose 101 Calcium 9.1 Magnesium 2.5 Troponin I High Sens 7 9 TSH 3.32 Radiography Diagnostic Testing: Clinical Impression(s) from Imaging Studies Chest X-Ray 08/29/21 20:32 IMPRESSION: 1. No radiographic evidence of acute cardiopulmonary disease. Electronically Signed: Felton Betancourt DO at 21:03 EST Tel , Service support , EKG Initial EKG: Comments: EKG done for syncope read by me shows a normal sinus rhythm with overall rate of 71. No ectopy. No acute ST elevation or depression. UT interval, QRS duration and QTc is normal. Follow-up EKG: Comments: Repeat EKG shows normal sinus rhythm with overall rate of 66. No ectopy noted. There is slightly irregularities to the baseline but no sign of acute ST elevation or depression. No development of T wave inversion. UT interval, QRS duration and QTC are normal. Discharge Plan Triage Chief Complaint: Syncope ED Provider: Olegario Garcia Dx/Rx/DC Orders Clinical Impression: Syncope, Acute dehydration Instructions: What Is Syncope?, ED Dehydration (Adult), ED Fainting, Uncertain Cause, ED Dizziness or Syncope ... Prescriptions: No Action levothyroxine [Levoxyl] 100 MCG tablet 100 mcg PO DAILY RF: 0 calcium carbonate [Caltrate 600] 600 MG tablet 1,200 mg PO BIDCM RF: 0 ascorbic acid (vitamin C) [Vitamin C] 500 MG tablet 1,000 mg PO BIDCM RF: 0 vitamin B complex 1 EACH capsule 1 ea PO DAILY RF: 0 cholecalciferol (vitamin D3) 10,000 UNIT capsule 5,000 unit PO DAILY RF: 0 multivitamin with folic acid [Thera] 1 TABLET tablet 1 tab PO DAILY RF: 0 coenzyme Q10 [Co Q-10] 300 MG capsule 300 mg PO DAILY RF: 0 Active Enzymes 2 cap PO TID RF: 0 Primary Care Provider: Hermann Lopes Referrals: Hermann Lopes MD [Primary Care Provider] - 3-5 Days Disposition Disposition: Home, Self Care Discharge Date/Time: 08/29/21 23:45
--- NOTE | 2021-08-29 21:43 | EKG12_ITS ---
Test Reason : DYSRHYTHMIA Blood Pressure : / mmHG Vent. Rate : 066 BPM Atrial Rate : 066 BPM P-R Int : 150 ms QRS Dur : 088 ms QT Int : 402 ms P-R-T Axes : 072 070 059 degrees QTc Int : 421 ms Normal sinus rhythm Normal ECG Confirmed by MARCI GONG, YANI ([id number]), commissioning editor KRISTINE SOW ([id number]) on 08/30/2021 1:33:42 PM Referred By: PL Confirmed By:ANA PAULA COVARRUBIAS MD
[2021-08-29 21:57] VITALS: BP 143/91; PULSE 67; RESP 15; O2SAT 97
[2021-08-29 22:30] LABS: Troponin-I HS 9 pg/mL (3.0-54.0)
[2021-08-29 23:00] LABS: Bacteria 0 SEEN /hpf (None Seen); Mucous, Urine 0 SEEN /hpf (<or=2+); Red Blood Cells-Urine 0 SEEN /hpf (0-5); Squamous Epithelial Cells - UA 0 SEEN /hpf (5-10)
[2021-08-29 23:09] LABS: Color, Urine Straw (Yellow); Glucose, Dipstick Normal (Normal); Ketone-Dipstick Negative (Negative); Leukocyte Esterase-Dipstick 100 /ul (Negative); Nitrite-Dipstick Negative (Negative); Occult Blood-Urine Negative /ul (Negative); Protein-Dipstick Negative (Negative); Urine Bilirubin Dipstick Negative (Negative); Urine Clarity Clear (Clear); Urine Urobilinogen Normal (Normal)
[2021-08-29 23:11] VITALS: PULSE 74; RESP 16; O2SAT 97
[2021-08-29 23:19] LABS: White Blood Cells 0-5 SEEN /hpf (0-5)
== END 2021-08-29 23:45 | disposition home or self-care (01) ==
LOC: ED 20:27
PROVIDERS: Emergency Provider Emergency Medicine; PCP Family Medicine; Visit Provider Emergency Medicine
DX: R55 Syncope and collapse (principal); E86.0 Dehydration; E07.9 Disorder of thyroid, unspecified; M19.90 Unspecified osteoarthritis, unspecified site; Z79.899 Other long term (current) drug therapy; Z86.73 Personal history of transient ischemic attack (TIA), and cerebral infarction without residual deficits
CPT/HCPCS: 71045; 80048; 81001; 83735; 84443; 84484; 85025; 93005; 99284; J7040

== ENCOUNTER 2021-09-06 16:59 | Outpatient (CLI) | payer MEDICARE, SELFPAY ==
[2021-09-06 17:50] LABS: Basophil% 0.8 % (0-1); Eosinophils% 1.7 % (0-5); Hematocrit 39.2 % (37-47); Hemoglobin 13.1 g/dL (12.0-15.0); Lymphocyte % 40.6 % (19-41); Mean Corp Hgb Conc 33.4 g/dL (32-36); Mean Corpuscular Hgb 30.9 pg (27.0-32.0); Mean Corpuscular Volume 92.5 fL (81-99); Mean Platelet Vol. 9.4 fl (6.2-12.0); Monocyte% 10.7 % (0-10); Neutrophil % 45.7 % (47-70); Platelet Count 241 K/mm3 (150-450); RBC Distribution Width CV 12.6 % (11.6-14.6); RBC Distribution Width SD 42.5 fl (35.1-43.9); Red Blood Count 4.24 M/mm3 (4.2-5.4); White Blood Count 6.4 K/mm3 (4.4-11.0)
[2021-09-06 17:51] LABS: Absolute Lymphocyte Count 2.58 X10^3/uL (0.83-4.51); Absolute Neutrophil Count 2.9 X10^3/uL (2.0-7.7); Basophil# 0.05 X10^3/uL; Eosinophil# 0.11 X10^3/uL; Lymphocyte # 2.58 X10^3/ul (0.83-4.51); Monocyte# 0.68 X10^3/uL; NRBC Flagged by Analyzer 0 % (0-5); Neutrophil # 2.91 X10^3/uL (2.7-7.7)
[2021-09-06 18:38] LABS: ALB/GLOB Ratio 1.2 RATIO (0.9-2.4); AST(SGOT) 16 U/L (15-37); Alanine Aminotransfer ALT/SGPT 31 U/L (13-56); Albumin, Serum 3.7 g/dL (3.2-5.0); Alkaline Phosphatase 79 U/L (45-117); Anion Gap 4 (5-15); BUN 27 mg/dL (7-18); BUN/Creat Ratio 38.4 RATIO (10-20); Calcium,Total 9.4 mg/dL (8.5-10.1); Chloride 103 mmol/L (98-107); EST Glomerular Filtration Rate 87 mL/min (>60); Est Glom Filt Rate - Afr Amer 105 mL/min (>60); Globulin 3.1 g/dL (2.2-4.2); Glucose 88 mg/dL (74-106); Potassium 4.1 mmol/L (3.5-5.1); Protein, Total 6.8 g/dL (6.4-8.2); Sodium Level 138 mmol/L (136-145)
== END 2021-09-06 23:59 | disposition short-term general hospital (02) ==
LOC: MFPLAB 17:03
PROVIDERS: PCP Family Medicine; Referring Provider Family Medicine; Visit Provider Family Medicine
DX: R55 Syncope and collapse (principal)
CPT/HCPCS: 36415; 80053; 85025

== ENCOUNTER 2021-09-25 13:53 | Outpatient (CLI) | payer MEDICARE, SELFPAY ==
--- NOTE | 2021-09-25 13:57 | BI_ITS ---
MAMMOGRAPHY - BILATERAL SCREENING REASON FOR EXAM: Female, 71 years old. Routine annual screening examination. PERTINENT HISTORY: Aunt with breast cancer. TECHNIQUE: Digital bilateral breast gustavo (3D mammographic acquisition) in the CC and MLO projections. 2-D mediolateral oblique (MLO) and craniocaudad (CC) views of both breasts were obtained. CAD: Full Field Digital Mammography with Computer Added Detection was performed. COMPARISON: Comparison is made with prior study dated 02/03/2018. FINDINGS: Breast Composition: There are scattered areas of fibroglandular density. There are no dominant masses or suspicious calcifications. No other significant abnormalities are identified. There has been no significant change since the prior study. BI/SCRN MAMM (CAD)W/GUSTAVO BILAT IMPRESSION: Stable bilateral screening mammogram. Yearly follow-up mammogram recommended. (A) ASSESSMENT CATEGORY: BIRADS Category 1: Negative. A letter regarding these results will be sent to the patient by the facility within 30 days. Approximately 10% of breast cancers are not detected by mammography. A normal mammogram should not delay biopsy of a clinically suspicious abnormality. [id number] Electronically Signed: Matt Marion MD at 14:58 EST ,
== END 2021-09-25 23:59 | disposition home or self-care (01) ==
LOC: OPBI 13:55
PROVIDERS: PCP Family Medicine; Referring Provider Nurse Practitioner Family; Visit Provider Nurse Practitioner Family
DX: Z12.31 Encounter for screening mammogram for malignant neoplasm of breast (principal)
CPT/HCPCS: 77063; 77067

== ENCOUNTER 2021-11-29 16:55 | Emergency (ER) | payer MEDICARE, SELFPAY ==
[2021-11-29 16:56] VITALS: BP 145/81; PULSE 81; RESP 15; TEMP 36.6; O2SAT 98; BMI 21.7
[2021-11-29 16:59] VITALS: BP 145/81; PULSE 86; RESP 15; O2SAT 97
--- NOTE | 2021-11-29 17:13 | EKG12_ITS ---
Test Reason : SEIZURE Blood Pressure : / mmHG Vent. Rate : 071 BPM Atrial Rate : 071 BPM P-R Int : 148 ms QRS Dur : 088 ms QT Int : 400 ms P-R-T Axes : 101 112 161 degrees QTc Int : 434 ms Suspect arm lead reversal, interpretation assumes no reversal Sinus rhythm with Premature atrial complexes Lateral infarct , age undetermined Abnormal ECG Confirmed by MARCI GONG, YANI ([id number]), web content editor KRISTINE SOW ([id number]) on 12/03/2021 1:53:10 PM Referred By: KEYUR Confirmed By:ANA PAULA COVARRUBIAS MD
--- NOTE | 2021-11-29 17:14 | CT_ITS ---
STUDY: CT BRAIN WITHOUT CONTRAST ENHANCEMENT OF 1753 HOURS ON 11/29/2021 REASON FOR EXAM: 71-year-old female with a seizure. RADIATION DOSAGE (If Supplied By Facility): CTDIvol = ( 44.99 ) mGy, DLP = ( 796.11 ) mGycm TECHNIQUE: Transaxial CT imaging of the brain was performed without administration of intravenous contrast material. Individualized dose optimization techniques were used for this CT. COMPARISON: 03/20/2019. FINDINGS: Normal soft tissue structures. Normal calvarium. No intracranial mass lesions. Normal size ventricles and extra-axial spaces for the patient''s age. Normal white matter tracts of the cerebral hemispheres. Normal basal ganglia and thalami. Normal brainstem. Normal cerebellum. There is no intracranial hemorrhage. There are no findings of an acute ischemic infarction. Normal visualized paranasal sinuses. CT/Brain/Head without Contrast IMPRESSION: 1. Normal unenhanced CT scan of the brain. 2. No intracranial mass lesions, estimate the hemorrhagic cerebral infarction or intracranial hematomas. 3. Normal calvarium and paranasal sinuses. 4. No interval change since previous study of 03/20/2019. Electronically Signed: Codey Faria MD at 19:13 EDT ,
--- NOTE | 2021-11-29 17:15 | EDS_ITS ---
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 She feels fine now except for being a little tired. She is amnestic to what happened at work and has no recollection of anything, she denies any known prodromal symptoms. She denies any recent fall or injury. No recent illness. She states she had seizures a long time ago and states since she was seizure-free was taken off of medications back in 1982. She states she has not had a seizure since until today. She states she was admitted for a brief hospital observation after a syncopal episode from being dehydrated a couple months ago, she states today she has eaten and drank without any difficulty but I have not had supper yet. She states she takes medication for hypothyroidism and recently saw a director clinical pharmacology for reasons that she is not sure. Patient is alone and there is no one else present to assist with history. [facility] Medical History Arthritis Hemorrhoids History of colon cancer History of thyroid cancer Hypothyroidism Seizures Stroke Thyroid disease Venous insufficiency of both lower extremities Weight loss Home Medications ascorbic acid (vitamin C) [Vitamin C] 1,000 mg PO BIDCM 03/04/14 [History Last Taken 03/20/19] cholecalciferol (vitamin D3) 5,000 unit PO DAILY 03/04/14 [History Last Taken 03/20/19] levothyroxine [Levoxyl] 100 mcg PO DAILY 03/04/14 [History Last Taken 03/20/19] multivitamin with folic acid [Thera] 1 tab PO DAILY 03/04/14 [History Last Taken 03/20/19] vitamin B complex 1 ea PO DAILY 03/04/14 [History Last Taken 03/20/19] coenzyme Q10 [Co Q-10] 300 mg PO DAILY 05/29/15 [History Last Taken 03/20/19] Active Enzymes 2 cap PO TID 01/23/18 [History Last Taken 03/20/19] calcium carb-vit D3-minerals 600 mg calcium-400 unit tablet 1 tab PO DAILY tab 11/13/21 [History Last Taken Unknown] estradiol 1 g VAGINAL QWEEK 11/13/21 [History Last Taken Unknown] lactase 9,000 unit tablet 9,000 unit PO QAC PRN tab 11/13/21 [History Last Taken Unknown] levetiracetam 500 mg PO BID #60 tab 11/29/21 [Rx Last Taken Unknown] Allergy/AdvReac Type Severity Reaction Status Date / Time latex Allergy Rash Verified 11/29/21 17:02 banana AdvReac Unknown Unknown Verified 11/29/21 17:02 orange AdvReac Unknown Unknown Verified 11/29/21 17:02 Poultry AdvReac Unknown Unknown Verified 11/29/21 17:02 aspirin AdvReac JUST Verified 11/29/21 17:02 DON'T LIKE IT-DOESN'T HELP codeine AdvReac MADE ME Verified 11/29/21 17:02 FEEL WORSE etodolac [From Lodine] AdvReac GI BLEED Verified 11/29/21 17:02 lactose AdvReac Diarrhea Verified 11/29/21 17:02 naproxen AdvReac GI BLEED Verified 11/29/21 17:02 phenobarbital AdvReac DIDN'T Verified 11/29/21 17:02 HELP MY SEIZURES wheat AdvReac Diarrhea Verified 11/29/21 17:02 Family History Mother Lung cancer CAD (coronary artery disease) Hypertension Father CAD (coronary artery disease) Sister Cancer Other Arthritis Heart disease Surgical History (Updated 11/29/21 @ 17:01 by Gee Norwood) H/O partial thyroidectomy History of bilateral hip replacements History of cystoscopy (09/29/12) History of partial hysterectomy (1988) History of total hip arthroplasty Social History Smoking Status: Never smoker alcohol intake: never ROS ROS ED Constitutional Constitutional ED: Reports fatigue and malaise; Denies chills or fever(s) Eyes Eyes: Denies change in vision or diplopia ENT ENT ED: Denies rhinorrhea or sore throat Cardiovascular Cardiovascular: Denies chest pain or palpitations Respiratory/Chest Respiratory/Chest: Denies cough or dyspnea Gastrointestinal Gastrointestinal: Denies abdominal pain, diarrhea, nausea or vomiting Genitourinary Genitourinary ED: Denies dysuria or hematuria Musculoskeletal Musculoskeletal: Denies back pain or neck pain Integumentary Denies abscess or rash Neurologic Neurologic: Denies headache(s), paresthesias or weakness Psychiatric Psychiatric: Denies anxiety or suicidal thoughts EXAM Physical Exam Const Vital Signs: 11/29/21 16:56 11/29/21 16:59 11/29/21 18:45 Temperature 97.9 F Temperature Source Temporal Pulse Rate 81 86 81 Respiratory Rate 15 15 18 Blood Pressure 145/81 H 145/81 H 158/92 H Blood Pressure Mean 102 102 114 Pulse Ox 98 97 98 Oxygen Delivery Method Room Air Room Air Room Air Positive well nourished and well developed General Appearance ED: well developed and NAD HEENT Reports moist mucous membranes normocephalic and atraumatic Eyes PERRL and EOMs intact bilaterally Neck full ROM and supple Resp normal respiratory effort and clear to auscultation bilaterally Cardio regular rate, regular rhythm and no murmurs GI non-tender and non-distended Auscultation: normoactive bowel sounds Palpation: soft Back/Spine no CVA tenderness General Back: other FROM Extremity normal to inspection General Extremety ED: Negative for edema, pulses abnormal or tenderness General Extremity: Negative for edema or pulses abnormal Neuro oriented x3, CN's II-XII intact bilaterally, no sensory deficits noted and deep tendon reflexes 2+ bilaterally Neuro Narrative: No clonus Sensorium / Orientation: awake and alert Motor Exam: strength 5/5 throughout Skin no rashes or lesions noted and no wounds MDM MDM MDM Narrative Medical decision making narrative: Work-up negative. No sign of urinary infection. Patient doing well throughout her ED stay, mildly elevated blood pressure, no seizure activity, ambulatory in the hallway with little assistance. CT of the head is negative. I think at this point it would be reasonable to put her on low-dose antiepileptic and have her follow-up with neurology. Patient is comfortable with that plan. Lab Data Attestation: I reviewed the patient's lab results. Labs: Laboratory Results - last 24 hr 11/29/21 11/29/21 11/29/21 17:40 17:40 17:43 WBC 4.8 RBC 3.92 L Hgb 12.4 Hct 36.0 L MCV 91.8 MCH 31.6 MCHC 34.4 RDW Std Deviation 42.1 RDW Coeff of Henna 12.4 Plt Count 207 MPV 9.2 Immature Gran % (Auto) 0.600 Neut % (Auto) 49.8 Lymph % (Auto) 37.7 [place] % (Auto) 9.2 Eos % (Auto) 2.1 Baso % (Auto) 0.6 Absolute Neuts (auto) 2.4 Absolute Lymphs (auto) 1.81 Nucleated RBC % 0 Sodium 141 Potassium 3.7 Chloride 106 Carbon Dioxide 30.0 Anion Gap 5 BUN 24 H Creatinine 0.82 Estim Creat Clear Calc 59.42 Est GFR (MDRD) Af Amer 88 Est GFR (MDRD) Non-Af 73 BUN/Creatinine Ratio 29.3 H Glucose 108 H Calcium 8.9 Troponin I High Sens 6 Urine Color Urine Clarity Urine pH Ur Specific Berger Urine Protein Urine Glucose (UA) Urine Ketones Urine Occult Blood Urine Nitrite Urine Bilirubin Urine Urobilinogen Ur Leukocyte Esterase Urine RBC Urine WBC Ur Squamous Epith Cells Urine Bacteria Urine Mucus POC Glucose 99 11/29/21 18:40 WBC RBC Hgb Hct MCV MCH MCHC RDW Std Deviation RDW Coeff of Henna Plt Count MPV Immature Gran % (Auto) Neut % (Auto) Lymph % (Auto) [place] % (Auto) Eos % (Auto) Baso % (Auto) Absolute Neuts (auto) Absolute Lymphs (auto) Nucleated RBC % Sodium Potassium Chloride Carbon Dioxide Anion Gap BUN Creatinine Estim Creat Clear Calc Est GFR (MDRD) Af Amer Est GFR (MDRD) Non-Af BUN/Creatinine Ratio Glucose Calcium Troponin I High Sens Urine Color Yellow Urine Clarity Clear Urine pH 6.0 Ur Specific Berger 1.020 Urine Protein 15 H Urine Glucose (UA) Normal Urine Ketones 5 H Urine Occult Blood Negative Urine Nitrite Negative Urine Bilirubin Negative Urine Urobilinogen Normal Ur Leukocyte Esterase 100 H Urine RBC 0 SEEN Urine WBC 0-5 SEEN Ur Squamous Epith Cells 0-5 SEEN Urine Bacteria 0 SEEN Urine Mucus 0 SEEN POC Glucose Radiography Diagnostic Testing: Clinical Impression(s) from Imaging Studies Brain CT 11/29/21 17:14 IMPRESSION: 1. Normal unenhanced CT scan of the brain. 2. No intracranial mass lesions, estimate the hemorrhagic cerebral infarction or intracranial hematomas. 3. Normal calvarium and paranasal sinuses. 4. No interval change since previous study of 03/20/2019. Electronically Signed: Codey Faria MD at 19:13 EDT , Rhythm Strip Rhythm Strip: Sinus Rhythm Rate: 70 Ectopy: PAC(s) EKG Initial EKG: Attestation: I personally reviewed and interpreted this EKG as follows: Interpretation: Sinus Rhythm and No Acute Injury Pattern Discharge Plan Triage Chief Complaint: Seizure ED Provider: Arnol Belle Dx/Rx/DC Orders Clinical Impression: Seizure, Hx of seizure disorder Instructions: ED Seizure, Recurrent (Adult) Prescriptions: New levetiracetam 500 mg tablet 500 mg PO BID Qty: 60 RF: 0 No Action estradiol 0.01 % (0.1 mg/gram) cream 1 g vaginal QWEEK RF: 0 lactase 9,000 unit tablet 9,000 unit PO QAC PRNRF: 0 calcium carbonate-vit D3-min 600 mg calcium- 400 unit tablet 1 tab PO DAILY RF: 0 levothyroxine [Levoxyl] 100 MCG tablet 100 mcg PO DAILY RF: 0 ascorbic acid (vitamin C) [Vitamin C] 500 MG tablet 1,000 mg PO BIDCM RF: 0 vitamin B complex 1 EACH capsule 1 ea PO DAILY RF: 0 cholecalciferol (vitamin D3) 10,000 UNIT capsule 5,000 unit PO DAILY RF: 0 multivitamin with folic acid [Thera] 1 TABLET tablet 1 tab PO DAILY RF: 0 coenzyme Q10 [Co Q-10] 300 MG capsule 300 mg PO DAILY RF: 0 Active Enzymes 2 cap PO TID RF: 0 Primary Care Provider: Hermann Lopes Referrals: Hermann Lopes MD [Primary Care Provider] - (Next week call for appointment) Nick Gao MD [STAFF PHYSICIAN] - (Call for appointment) Disposition Disposition: Home, Self Care
[2021-11-29 17:50] LABS: Bedside Glucose 99 mg/dL (74-106)
[2021-11-29 17:53] LABS: Absolute Lymphocyte Count 1.81 X10^3/uL (0.83-4.51); Absolute Neutrophil Count 2.4 X10^3/uL (2.0-7.7); Basophil# 0.03 X10^3/uL; Basophil% 0.6 % (0-1); Eosinophils% 2.1 % (0-5); Hemoglobin 12.4 g/dL (12.0-15.0); Lymphocyte # 1.81 X10^3/ul (0.83-4.51); Lymphocyte % 37.7 % (19-41); Mean Corp Hgb Conc 34.4 g/dL (32-36); Mean Corpuscular Hgb 31.6 pg (27.0-32.0); Mean Corpuscular Volume 91.8 fL (81-99); Mean Platelet Vol. 9.2 fl (6.2-12.0); Monocyte# 0.44 X10^3/uL; Monocyte% 9.2 % (0-10); NRBC Flagged by Analyzer 0 % (0-5); Neutrophil # 2.39 X10^3/uL (2.7-7.7); Neutrophil % 49.8 % (47-70); Platelet Count 207 K/mm3 (150-450); RBC Distribution Width CV 12.4 % (11.6-14.6); RBC Distribution Width SD 42.1 fl (35.1-43.9); Red Blood Count 3.92 M/mm3 (4.2-5.4); White Blood Count 4.8 K/mm3 (4.4-11.0)
[2021-11-29 18:11] LABS: Anion Gap 5 (5-15); BUN 24 mg/dL (7-18); BUN/Creat Ratio 29.3 RATIO (10-20); Calcium,Total 8.9 mg/dL (8.5-10.1); Chloride 106 mmol/L (98-107); Creatinine, Serum 0.82 mg/dL (0.55-1.02); EST Glomerular Filtration Rate 73 mL/min (>60); Est Glom Filt Rate - Afr Amer 88 mL/min (>60); Estimated Creatinine Clearance 59.42 ml/min; Glucose 108 mg/dL (74-106); Potassium 3.7 mmol/L (3.5-5.1); Sodium Level 141 mmol/L (136-145); Troponin-I HS 6 pg/mL (3.0-54.0)
[2021-11-29 18:45] VITALS: BP 158/92; PULSE 81; RESP 18; O2SAT 98
[2021-11-29 18:51] LABS: Bacteria 0 SEEN /hpf (None Seen); Color, Urine Yellow (Yellow); Glucose, Dipstick Normal (Normal); Ketone-Dipstick 5 mg/dl (Negative); Leukocyte Esterase-Dipstick 100 /ul (Negative); Mucous, Urine 0 SEEN /hpf (<or=2+); Nitrite-Dipstick Negative (Negative); Occult Blood-Urine Negative /ul (Negative); Protein-Dipstick 15 mg/dl (Negative); Red Blood Cells-Urine 0 SEEN /hpf (0-5); Urine Bilirubin Dipstick Negative (Negative); Urine Clarity Clear (Clear); Urine Urobilinogen Normal (Normal)
[2021-11-29 20:00] LABS: Squamous Epithelial Cells - UA 0-5 SEEN /hpf (5-10); White Blood Cells 0-5 SEEN /hpf (0-5)
[2021-11-29 21:11] VITALS: BP 141/80; PULSE 68; RESP 16; O2SAT 98
[2021-11-29] MEDS: levETIRAcetam 500 MG Tablet PO (21:20)
== END 2021-11-29 21:21 | disposition home or self-care (01) ==
PROVIDERS: Emergency Provider Emergency Medicine; PCP Family Medicine; Visit Provider Emergency Medicine
DX: G40.909 Epilepsy, unspecified, not intractable, without status epilepticus (principal); E03.9 Hypothyroidism, unspecified; Z79.899 Other long term (current) drug therapy; Z86.73 Personal history of transient ischemic attack (TIA), and cerebral infarction without residual deficits
CPT/HCPCS: 70450; 80048; 81001; 82962; 84484; 85025; 93005; 99285

== ENCOUNTER 2021-12-07 14:14 | Emergency (ER) | payer MEDICARE, SELFPAY ==
[2021-12-07 14:16] VITALS: BP 143/85; PULSE 77; RESP 21; TEMP 36.9; O2SAT 99; BMI 21.7
--- NOTE | 2021-12-07 14:51 | EKG12_ITS ---
Test Reason : SEIZURE Blood Pressure : / mmHG Vent. Rate : 067 BPM Atrial Rate : 067 BPM P-R Int : 146 ms QRS Dur : 086 ms QT Int : 446 ms P-R-T Axes : 081 068 061 degrees QTc Int : 471 ms Sinus rhythm with Premature atrial complexes Otherwise normal ECG Confirmed by SINA GONG, MANUEL ([id number]), editor trade journal KRISTINE SOW ([id number]) on 12/11/2021 8:56:25 AM Referred By: BB Confirmed By:MANUEL ANDINO MD
--- NOTE | 2021-12-07 14:55 | EX.ED.DYSGE1 ---
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 She denies any prodromal symptoms or feeling poorly other than feeling tired. She states she has felt tired for the last week since we saw her, I prescribed her levetiracetam 500 mg twice daily, she states she started taking it at night and felt tired ever since so she never took it twice a day only at night. She states that she skipped it last night because of feeling tired so she has not had a levetiracetam pill in about 36 hours. She did not bite her tongue. She did not soil her pants. At this time she denies any other symptoms except for feeling tired similar to prior to the event. She provides more information than she did a week ago, saying that when she passed out in August, she was referred to cardiology because of that and saw them about 2 weeks ago and states she is scheduled to come back to the hospital for more tests at some point. We referred her to neurology but she has not yet made that appointment. [facility] Medical History Arthritis Hemorrhoids History of colon cancer History of thyroid cancer Hypothyroidism Seizures Stroke Thyroid disease Venous insufficiency of both lower extremities Weight loss Home Medications ascorbic acid (vitamin C) [Vitamin C] 1,000 mg PO BIDCM 03/04/14 [History Last Taken 03/20/19] cholecalciferol (vitamin D3) 5,000 unit PO DAILY 03/04/14 [History Last Taken 03/20/19] levothyroxine [Levoxyl] 100 mcg PO DAILY 03/04/14 [History Last Taken 03/20/19] multivitamin with folic acid [Thera] 1 tab PO DAILY 03/04/14 [History Last Taken 03/20/19] vitamin B complex 1 ea PO DAILY 03/04/14 [History Last Taken 03/20/19] coenzyme Q10 [Co Q-10] 300 mg PO DAILY 05/29/15 [History Last Taken 03/20/19] Active Enzymes 2 cap PO TID 01/23/18 [History Last Taken 03/20/19] calcium carb-vit D3-minerals 600 mg calcium-400 unit tablet 1 tab PO DAILY tab 11/13/21 [History Last Taken Unknown] estradiol 1 g VAGINAL QWEEK 11/13/21 [History Last Taken Unknown] lactase 9,000 unit tablet 9,000 unit PO QAC PRN tab 11/13/21 [History Last Taken Unknown] levetiracetam 500 mg PO BID #60 tab 11/29/21 [Rx Last Taken Unknown] Allergy/AdvReac Type Severity Reaction Status Date / Time latex Allergy Rash Verified 12/07/21 14:21 banana AdvReac Unknown Unknown Verified 12/07/21 14:21 orange AdvReac Unknown Unknown Verified 12/07/21 14:21 Poultry AdvReac Unknown Unknown Verified 12/07/21 14:21 aspirin AdvReac JUST Verified 12/07/21 14:21 DON'T LIKE IT-DOESN'T HELP codeine AdvReac MADE ME Verified 12/07/21 14:21 FEEL WORSE etodolac [From Lodine] AdvReac GI BLEED Verified 12/07/21 14:21 lactose AdvReac Diarrhea Verified 12/07/21 14:21 naproxen AdvReac GI BLEED Verified 12/07/21 14:21 phenobarbital AdvReac DIDN'T Verified 12/07/21 14:21 HELP MY SEIZURES wheat AdvReac Diarrhea Verified 12/07/21 14:21 Family History Mother Lung cancer CAD (coronary artery disease) Hypertension Father CAD (coronary artery disease) Sister Cancer Other Arthritis Heart disease Surgical History H/O partial thyroidectomy History of bilateral hip replacements History of cystoscopy (09/29/12) History of partial hysterectomy (1988) History of total hip arthroplasty Social History Smoking Status: Never smoker alcohol intake: never ROS ROS ED Constitutional Constitutional ED: Reports as per HPI and fatigue; Denies chills or fever(s) Eyes Eyes: Denies change in vision or diplopia ENT ENT ED: Denies rhinorrhea or sore throat Cardiovascular Cardiovascular: Denies chest pain or palpitations Respiratory/Chest Respiratory/Chest: Denies cough or dyspnea Gastrointestinal Gastrointestinal: Denies abdominal pain, diarrhea, nausea or vomiting Genitourinary Genitourinary ED: Denies dysuria or hematuria Musculoskeletal Musculoskeletal: Denies back pain or neck pain Integumentary Denies abscess or rash Neurologic Neurologic: Denies headache(s), paresthesias or weakness Psychiatric Psychiatric: Denies anxiety or suicidal thoughts EXAM Physical Exam Const Vital Signs: 12/07/21 14:16 12/07/21 15:01 12/07/21 16:15 Temperature 98.5 F Temperature Source Temporal Pulse Rate 77 73 Pulse Rate [Lying] 66 Pulse Rate [Sitting (for 1 minute prior to obtaining)] 69 Pulse Rate [Standing (for 1 minute prior to obtaining)] 68 Respiratory Rate 21 H 18 Blood Pressure 143/85 H 156/81 H Blood Pressure [Lying] 144/88 H Blood Pressure [Sitting (for 1 minute prior to obtaining)] 156/86 H Blood Pressure [Standing (for 1 minute prior to obtaining)] 144/80 H Blood Pressure Mean 104 106 Blood Pressure Mean [Lying] 106 Blood Pressure Mean [Sitting (for 1 minute prior to obtaining)] 109 Blood Pressure Mean [Standing (for 1 minute prior to obtaining)] 101 Pulse Ox 99 100 Oxygen Delivery Method Room Air Room Air 12/07/21 16:45 Temperature 98.5 F Temperature Source Oral Pulse Rate 68 Pulse Rate [Lying] Pulse Rate [Sitting (for 1 minute prior to obtaining)] Pulse Rate [Standing (for 1 minute prior to obtaining)] Respiratory Rate 18 Blood Pressure 146/76 H Blood Pressure [Lying] Blood Pressure [Sitting (for 1 minute prior to obtaining)] Blood Pressure [Standing (for 1 minute prior to obtaining)] Blood Pressure Mean 99 Blood Pressure Mean [Lying] Blood Pressure Mean [Sitting (for 1 minute prior to obtaining)] Blood Pressure Mean [Standing (for 1 minute prior to obtaining)] Pulse Ox 99 Oxygen Delivery Method Room Air Positive well nourished and well developed General Appearance ED: well developed and NAD HEENT Reports moist mucous membranes HEENT Narrative: Normal tongue, no injury. Has dentures in. No signs of head trauma. normocephalic and atraumatic Eyes PERRL and EOMs intact bilaterally Neck full ROM and supple Resp normal respiratory effort and clear to auscultation bilaterally Cardio regular rate, regular rhythm and no murmurs GI non-tender and non-distended Auscultation: normoactive bowel sounds Palpation: soft Back/Spine no CVA tenderness General Back: other FROM Extremity normal to inspection General Extremety ED: Negative for edema, pulses abnormal or tenderness General Extremity: Negative for edema or pulses abnormal Neuro oriented x3, CN's II-XII intact bilaterally and no sensory deficits noted Sensorium / Orientation: awake and alert Motor Exam: strength 5/5 throughout Skin no rashes or lesions noted and no wounds MDM MDM MDM Narrative Medical decision making narrative: Patient was monitored here in emergency department without any recurrent events or telemetry events except for PACs that were asymptomatic. Vital signs remained stable. Her work-up is negative except for mild prerenal azotemia, she was drinking water in the ED. Orthostatics are negative. It is unknown if this truly was a seizure, or with the additional information she now provides, cardiogenic syncope, or other. She states it was witnessed by somebody at her work, however she has no idea what they said or saw and no one else is here with her, and she does not know exactly who it was that saw this. In looking at her prior records, cardiology has an echocardiogram and an outpatient and carotid Doppler study scheduled for December 21. She already did a Holter monitor that ended up showing episodes of atrial tachycardia because of a syncopal episode she had in August, it is unknown if these are causing these episodes or not. With a history of epilepsy in the past it is also unknown if she is having seizures. Discussed with the patient and hospitalist for admission to observation, at least during that time we will be able to monitor her and potentially get an echocardiogram and an EEG which she was amenable to. Hospitalist saw discussed with the patient, after discussing the fact that she would meet criteria for an observation at this time, she really changes her mind and refuses to be admitted. He spoke with her PCP, and the patient will follow-up closely as an outpatient. Lab Data Attestation: I reviewed the patient's lab results. Labs: Laboratory Results - last 24 hr 12/07/21 12/07/21 12/07/21 14:22 14:22 16:14 WBC 4.9 RBC 3.95 L Hgb 12.4 Hct 37.1 MCV 93.9 MCH 31.4 MCHC 33.4 RDW Std Deviation 42.5 RDW Coeff of Hen[place] 12.3 Plt Count 242 MPV 9.4 Immature Gran % (Auto) 0.400 Neut % (Auto) 48.0 Lymph % (Auto) 38.0 [place] % (Auto) 11.0 H Eos % (Auto) 2.2 Baso % (Auto) 0.4 Absolute Neuts (auto) 2.4 Absolute Lymphs (auto) 1.86 Nucleated RBC % 0 Sodium 140 Potassium 3.7 Chloride 105 Carbon Dioxide 31.0 Anion Gap 4 L BUN 25 H Creatinine 0.83 Estim Creat Clear Calc 58.70 Est GFR (MDRD) Af Amer 87 Est GFR (MDRD) Non-Af 72 BUN/Creatinine Ratio 30.2 H Glucose 122 H Calcium 8.8 Troponin I High Sens 7 Urine Color Yellow Urine Clarity Clear Urine pH 6.5 Ur Specific Rescue 1.015 Urine Protein Negative Urine Glucose (UA) Normal Urine Ketones Negative Urine Occult Blood Negative Urine Nitrite Negative Urine Bilirubin Negative Urine Urobilinogen Normal Ur Leukocyte Esterase Negative Urine RBC 0 SEEN Urine WBC 0 SEEN Ur Squamous Epith Cells 0-5 SEEN Urine Bacteria 0 SEEN Urine Mucus 0 SEEN Rhythm Strip Rhythm Strip: Sinus Rhythm Rate: 69 Ectopy: PAC(s) EKG Initial EKG: Attestation: I personally reviewed and interpreted this EKG as follows: Interpretation: Sinus Rhythm and No Acute Injury Pattern Discharge Plan Triage Chief Complaint: Seizure ED Provider: Arnol Belle Dx/Rx/DC Orders Clinical Impression: Recurrent syncope Instructions: ED Fainting, Uncertain Cause Prescriptions: Continued estradiol 0.01 % (0.1 mg/gram) cream 1 g vaginal QWEEK RF: 0 lactase 9,000 unit tablet 9,000 unit PO QAC PRNRF: 0 calcium carbonate-vit D3-min 600 mg calcium- 400 unit tablet 1 tab PO DAILY RF: 0 levothyroxine [Levoxyl] 100 MCG tablet 100 mcg PO DAILY RF: 0 ascorbic acid (vitamin C) [Vitamin C] 500 MG tablet 1,000 mg PO BIDCM RF: 0 vitamin B complex 1 EACH capsule 1 ea PO DAILY RF: 0 cholecalciferol (vitamin D3) 10,000 UNIT capsule 5,000 unit PO DAILY RF: 0 multivitamin with folic acid [Thera] 1 TABLET tablet 1 tab PO DAILY RF: 0 coenzyme Q10 [Co Q-10] 300 MG capsule 300 mg PO DAILY RF: 0 Active Enzymes 2 cap PO TID RF: 0 levetiracetam 500 mg tablet 500 mg PO BID Qty: 60 RF: 0 Primary Care Provider: Hermann Lopes Referrals: Hermann Lopes MD [Primary Care Provider] - See Referral Note (BRANDY) Disposition Disposition: Home, Self Care
[2021-12-07 15:01] VITALS: BP 144/80; BP 144/88; BP 156/86; PULSE 66; PULSE 68; PULSE 69
[2021-12-07 15:05] LABS: Absolute Lymphocyte Count 1.86 X10^3/uL (0.83-4.51); Absolute Neutrophil Count 2.4 X10^3/uL (2.0-7.7); Basophil# 0.02 X10^3/uL; Basophil% 0.4 % (0-1); Eosinophil# 0.11 X10^3/uL; Eosinophils% 2.2 % (0-5); Hematocrit 37.1 % (37-47); Hemoglobin 12.4 g/dL (12.0-15.0); Lymphocyte # 1.86 X10^3/ul (0.83-4.51); Mean Corp Hgb Conc 33.4 g/dL (32-36); Mean Corpuscular Hgb 31.4 pg (27.0-32.0); Mean Corpuscular Volume 93.9 fL (81-99); Mean Platelet Vol. 9.4 fl (6.2-12.0); Monocyte# 0.54 X10^3/uL; NRBC Flagged by Analyzer 0 % (0-5); Neutrophil # 2.35 X10^3/uL (2.7-7.7); Platelet Count 242 K/mm3 (150-450); RBC Distribution Width CV 12.3 % (11.6-14.6); RBC Distribution Width SD 42.5 fl (35.1-43.9); Red Blood Count 3.95 M/mm3 (4.2-5.4); White Blood Count 4.9 K/mm3 (4.4-11.0)
[2021-12-07 15:29] LABS: Anion Gap 4 (5-15); BUN 25 mg/dL (7-18); BUN/Creat Ratio 30.2 RATIO (10-20); Calcium,Total 8.8 mg/dL (8.5-10.1); Chloride 105 mmol/L (98-107); Creatinine, Serum 0.83 mg/dL (0.55-1.02); EST Glomerular Filtration Rate 72 mL/min (>60); Est Glom Filt Rate - Afr Amer 87 mL/min (>60); Glucose 122 mg/dL (74-106); Potassium 3.7 mmol/L (3.5-5.1); Sodium Level 140 mmol/L (136-145); Troponin-I HS 7 pg/mL (3.0-54.0)
[2021-12-07 16:15] VITALS: BP 156/81; PULSE 73; RESP 18; O2SAT 100
[2021-12-07 16:19] LABS: Bacteria 0 SEEN /hpf (None Seen); Mucous, Urine 0 SEEN /hpf (<or=2+); Red Blood Cells-Urine 0 SEEN /hpf (0-5); White Blood Cells 0 SEEN /hpf (0-5)
[2021-12-07 16:27] LABS: Color, Urine Yellow (Yellow); Glucose, Dipstick Normal (Normal); Ketone-Dipstick Negative (Negative); Leukocyte Esterase-Dipstick Negative /ul (Negative); Nitrite-Dipstick Negative (Negative); Occult Blood-Urine Negative /ul (Negative); Protein-Dipstick Negative (Negative); Specific Gravity, Urine 1.015 (1.002-1.030); Urine Bilirubin Dipstick Negative (Negative); Urine Clarity Clear (Clear); Urine Urobilinogen Normal (Normal); Urine pH 6.5 (5.0 - 8.0)
[2021-12-07 16:45] VITALS: BP 146/76; PULSE 68; RESP 18; TEMP 36.9; O2SAT 99
[2021-12-07 16:55] LABS: Squamous Epithelial Cells - UA 0-5 SEEN /hpf (5-10)
[2021-12-07 17:28] VITALS: BP 147/79; PULSE 77; RESP 17; TEMP 36.1
--- NOTE | 2021-12-07 17:39 | ED.RN ---
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 She is aware and says she has her own phone to call for a ride and wants to get dressed first. Taken to waiting room via w/c.
== END 2021-12-07 17:40 | disposition home or self-care (01) ==
LOC: ED 16:40 → PCU 16:50
PROVIDERS: Emergency Provider Emergency Medicine; PCP Family Medicine; Visit Provider Emergency Medicine
DX: R55 Syncope and collapse (principal); R56.9 Unspecified convulsions
CPT/HCPCS: 80048; 81001; 84484; 85025; 93005; 99285

== ENCOUNTER → 2021-12-21 | Outpatient (CLI) | payer MEDICARE, SELFPAY ==
--- NOTE | 2021-12-21 08:49 | CDU_ITS ---
Reason For Study: syncope Rt. Velocities/BP Lt. Velocities/BP Prox CCA 83.8/13.4 cm/sec. Prox CCA 70.8/14.7 cm/sec. Mid CCA 73.4/14.7 cm/sec. Mid CCA 64.3/14.7 cm/sec. Dist CCA 68.2/14.7 cm/sec. Dist CCA 66.9/17.3 cm/sec. Prox ICA 70.8/18.6 cm/sec. Prox ICA 59.1/16.0 cm/sec. Mid ICA 104.7/29.1 cm/sec. Mid ICA 72.1/21.3 cm/sec. Dist ICA 86.5/33.0 cm/sec. Dist ICA 103.4/36.9 cm/sec. Rt. ICA/CCA = 1.4. Lt. ICA/CCA = 1.6. Prox ECA 61.7/4.3 cm/sec. Prox ECA 65.6/8.2 cm/sec. Rt. Vert. 46.0/9.5 cm/sec. Lt. Vert. 60.4/17.3 cm/sec. Right Extracranial There is intimal thickening but no significant atherosclerotic plaque noted in the right common carotid artery. There is intimal thickening but no significant atherosclerotic plaque noted in the right internal carotid artery. There is intimal thickening but no significant atherosclerotic plaque noted in the right external carotid artery. Antegrade flow is noted in the right vertebral artery. Left Extracranial There is intimal thickening but no significant atherosclerotic plaque noted in the left common carotid artery. There is intimal thickening but no significant atherosclerotic plaque noted in the left internal carotid artery. There is intimal thickening but no significant atherosclerotic plaque noted in the left external carotid artery. Antegrade flow is noted in the left vertebral artery. Procedure Carotid Duplex 35129. This is a Carotid Duplex examination using B-mode, color flow and specral Doppler. The exam was diagnostic. Exam performed in department. VL/Carotid Duplex Ultrasound Interpretation Summary No hemodynamically significant plaque bilateral extracranial internal carotid a rteries with less than 50% stenosis Less than 50% stenosis bilateral external carotid arteries Patent and antegrade vertebral arteries bilaterally Ordering Physician: Ajit Bassett Performed By: Deo Kimball RVT
--- NOTE | 2021-12-21 08:49 | ECHOD_ITS ---
Reason For Study: Arrhythmia Procedure This was a 2D Doppler, Color Flow transthoracic echocardiogram. Exam performed in department. Left Ventricle Normal LV size. Left ventricular systolic function is normal. The estimated ejection fraction is 60 %. Normal diastology for age. No regional wall motion abnormalities noted. Right Ventricle Normal RV size. Normal systolic function. Atria Normal left atrium. Normal right atrium. Bubble contrast study negative for right to left interatrial shunt. Mitral Valve Normal mitral valve. Tricuspid Valve Normal tricuspid valve. Mild (1+) tricuspid valve insufficiency. Pulmonary artery systolic pressure is 26 mmHg. Aortic Valve Normal aortic valve. Pulmonic Valve Normal pulmonic valve. Great Vessels Normal aortic root. The pulmonary artery is normal size. Normal inferior vena cava. Pericardium/Pleural No pericardial effusion. Medication Performed a rapid injection of agitated mix of 9 cc saline and 1cc air to assess for atrial septal defect. MMode/2D Measurements & Calculations LVIDd: 5.0 cm IVSd: 0.96 cm Ao root diam: 2.8 cm LVIDs: 3.4 cm LVPWd: 0.84 cm RVDd: 3.2 cm FS: 32.6 % LAV(MOD-bp): 59.5 ml LVAd ap4: 21.0 cm2 SV(MOD-sp4): 35.9 ml LAV(MOD-bp) Indexed: 35.0 ml/m2 LVLd ap4: 6.1 cm LAV(MOD-sp2): 63.4 ml EDV(MOD-sp4): 61.4 ml LAV(MOD-sp4): 49.7 ml EDV(sp4-el): 61.1 ml LVAs ap4: 11.6 cm2 LVLs ap4: 4.6 cm ESV(MOD-sp4): 25.5 ml ESV(sp4-el): 24.5 ml EF(MOD-sp4): 58.5 % EF(sp4-el): 60.0 % SV(sp4-el): 36.7 ml LA A4 area: 17.6 cm2 LA dimension(2D): 4.9 cm RA A4 area: 16.7 cm2 Doppler Measurements & Calculations MV E max felipe: 68.2 cm/sec Lat Peak E' Felipe: 7.7 cm/sec Med Peak E' Felipe: 9.3 cm/sec MV A max felipe: 42.1 cm/sec E/E' lat: 8.9 E/E' med: 7.3 MV E/A: 1.6 Ao V2 max: 103.5 cm/sec LV V1 max: 77.1 cm/sec PA V2 max: 72.3 cm/sec Ao max P.3 mmHg LV V1 max P.4 mmHg Ao V2 mean: 75.1 cm/sec Ao mean P.4 mmHg Ao V2 VTI: 25.3 cm TR max felipe: 236.7 cm/sec TR max P.4 mmHg ECHO/Echo Complete Interpretation Summary Normal LV size. Left ventricular systolic function is normal. The estimated ejection fraction is 60 %. Normal diastology for age. Bubble contrast study negative for right to left interatrial shunt. Ordering Physician: Ajit Bassett Referring Physician: Hermann Lopes Performed By: Tonya Malhotra, MIRANDA, RVT
== END | disposition home or self-care (01) ==
LOC: CVS 08:47
PROVIDERS: PCP Family Medicine; Visit Provider Internal Medicine Cardiovascular Disease
DX: I47.1 Supraventricular tachycardia (principal); R55 Syncope and collapse
CPT/HCPCS: 93225; 93226; 93306; 93880; A4216

== ENCOUNTER → 2022-01-09 | Outpatient (CLI) | payer MEDICARE, SELFPAY | END | disposition home or self-care (01) | PROVIDERS: PCP Family Medicine; Referring Provider Family Medicine; Visit Provider Family Medicine | DX: R40.20 Unspecified coma (principal) | CPT/HCPCS: 95819 ==

== ENCOUNTER 2022-03-18 09:40 | Emergency (ER) | payer OTHER, MEDICARE, SELFPAY ==
[2022-03-18 09:41] VITALS: BP 128/84; PULSE 73; RESP 14; TEMP 36.7; O2SAT 96; BMI 21.1
--- NOTE | 2022-03-18 09:54 | RAD_ITS ---
STUDY: X-RAY - LEFT SHOULDER REASON FOR EXAM: Left shoulder pain, left shoulder injury 6 days ago. TECHNIQUE: 4 view(s) of the shoulder. COMPARISON: None. FINDINGS: Normal glenohumeral articulation. Normal acromioclavicular joint. There is a nondisplaced fracture of the distal clavicle. Normal acromion. Normal humeral head and visualized proximal humerus. The soft tissue structures are unremarkable. Normal visualized pulmonary apex. RAD/Shoulder min 2 Views IMPRESSION: Nondisplaced fracture of the distal clavicle. Electronically Signed: Ruben May MD at 10:48 EDT ,
--- NOTE | 2022-03-18 09:54 | RAD_ITS ---
STUDY: X-RAY - UNILATERAL RIBS ( LEFT ) WITH CHEST REASON FOR EXAM: Female, 71 years old. trauma TECHNIQUE - RIBS: 4 view(s) of the ribs. TECHNIQUE - CHEST: Single PA view of the chest. COMPARISON: Chest x-ray dated August 29, 2021 FINDINGS - RIBS: An acute oblique minimally displaced fractures present at the far lateral aspect of the left 9th rib. No pneumothorax or consolidation or pleural effusion is seen on the left. No additional left side rib fractures are visualized. FINDINGS - CHEST: The lungs are clear and expanded. There is no demonstrated pleural abnormality. Normal size heart. Normal mediastinum and sharon. Normal visualized pulmonary arteries. There is atherosclerotic calcification of the aortic arch with tortuosity. Normal visualized thoracic spine. A mildly displaced oblique fracture is present at the tip of the left clavicle. There is no demonstrated abnormality of the visualized soft tissue structures of the upper abdomen. RAD/Ribs Uni Min 3V w/PA Chest IMPRESSION: RIBS: Acute minimally displaced left 9th rib fracture CHEST: Acute minimally displaced fracture at the tip of the left clavicle Electronically Signed: Marlon Keller MD at 11:09 EDT ,
--- NOTE | 2022-03-18 09:54 | RAD_ITS ---
STUDY: X-RAY - PELVIS AND LEFT HIP REASON FOR EXAM: Left hip pain, left hip injury 6 days ago. TECHNIQUE: 2 views of the pelvis and hip. COMPARISON: Radiographs 03/20/2019. FINDINGS: Normal visualized soft tissue structures. Normal bilateral iliac wings, sacroiliac joints and visualized sacrum. Normal bilateral superior and inferior pubic rami. There are degenerative changes of the pubic symphysis. Normal bilateral ischial tuberosities. There is a left hip arthroplasty without demonstrated periprosthetic fracture or dislocation. There is heterotopic ossification at the lateral aspect of the arthroplasty as on the prior study. RAD/HIP, UNI W/ Pelvis 2-3 Views IMPRESSION: Left hip arthroplasty with heterotopic ossification without demonstrated periprosthetic fracture or dislocation. Electronically Signed: Ruben May MD at 10:40 EDT ,
--- NOTE | 2022-03-18 09:55 | EDS_ITS ---
HPI History of Present Illness Chief Complaint: Other, Pain/Inj Narrative Narrative: Patient presents with left hip and left shoulder pain. She sustained a mechanical fall at work 7 days ago. She hit her left shoulder, left side of the ribs and left hip, she called off 1 day last week, she has been staying home, she has been able to do laundry and food however she continues to have pain. She was trying to go to work today and her pain got worse especially in her hip. She is able to ambulate. No head injury or loss of consciousness. No neck pain. [facility] Medical History Arthritis Hemorrhoids History of colon cancer History of thyroid cancer Hypothyroidism Seizures Stroke Thyroid disease Venous insufficiency of both lower extremities Weight loss Home Medications ascorbic acid (vitamin C) 500 mg tablet (Vitamin C) 1,000 mg PO BIDCM 03/04/14 [History Last Taken 03/20/19] cholecalciferol (vitamin D3) 250 mcg (10,000 unit) capsule 5,000 unit PO DAILY 03/04/14 [History Last Taken 03/20/19] levothyroxine 100 mcg tablet (Levoxyl) 100 mcg PO DAILY 03/04/14 [History Last Taken 03/20/19] multivitamin with folic acid 400 mcg tablet (Thera) 1 tab PO DAILY 03/04/14 [History Last Taken 03/20/19] vitamin B complex 1 ea PO DAILY 03/04/14 [History Last Taken 03/20/19] coenzyme Q10 300 mg capsule (Co Q-10) 300 mg PO DAILY 05/29/15 [History Last Taken 03/20/19] Active Enzymes 2 cap PO TID 01/23/18 [History Last Taken 03/20/19] calcium carb-vit D3-minerals 600 mg calcium-400 unit tablet 1 tab PO DAILY 11/13/21 [History Last Taken Unknown] estradiol 0.01% (0.1 mg/gram) vaginal cream 1 g vaginal QWEEK 11/13/21 [History Last Taken Unknown] lactase 9,000 unit tablet 9,000 unit PO QAC PRN 11/13/21 [History Last Taken Unknown] levetiracetam 500 mg tablet 500 mg PO BID #60 tabs 11/29/21 [Rx Last Taken Unknown] hydrocodone-acetaminophen 5-325mg 5mg-325mg 1 tab PO Q6H PRN pain 3 days #12 t abs 03/18/22 [Rx Last Taken Unknown] Allergy/AdvReac Type Severity Reaction Status Date / Time latex Allergy Rash Verified 03/18/22 09:44 banana AdvReac Unknown Unknown Verified 03/18/22 09:44 orange AdvReac Unknown Unknown Verified 03/18/22 09:44 Poultry AdvReac Unknown Unknown Verified 03/18/22 09:44 aspirin AdvReac JUST Verified 03/18/22 09:44 DON'T LIKE IT-DOESN'T HELP codeine AdvReac MADE ME Verified 03/18/22 09:44 FEEL WORSE etodolac [From Lodine] AdvReac GI BLEED Verified 03/18/22 09:44 lactose AdvReac Diarrhea Verified 03/18/22 09:44 naproxen AdvReac GI BLEED Verified 03/18/22 09:44 phenobarbital AdvReac DIDN'T Verified 03/18/22 09:44 HELP MY SEIZURES wheat AdvReac Diarrhea Verified 03/18/22 09:44 Family History Mother Lung cancer CAD (coronary artery disease) Hypertension Father CAD (coronary artery disease) Sister Cancer Other Arthritis Heart disease Surgical History H/O partial thyroidectomy History of bilateral hip replacements History of cystoscopy (09/29/12) History of partial hysterectomy (1988) History of total hip arthroplasty Social History Smoking Status: Never smoker alcohol intake: never ROS ROS ED ROS Narrative Social: Lives by herself, she does not drive. Medications: Reviewed in [facility] and at bedside Past medical history: Reviewed in [employer] and at the bedside Review of systems General: Patient has no head injury or loss of consciousness HEENT: No facial injury Neck: No neck pain Cardiovascular: Patient denies any chest pain or palpitations Chest wall: Some left-sided mid axillary line chest wall pain Respiratory: There is no shortness of breath GI: There is no nausea vomiting diarrhea or abdominal pain, no abdominal wall contusions Skin: No lacerations or abrasions, left shoulder bruising Neurological: Patient has no memory loss, confusion, or any focal weakness Psychiatric: No recent behavioral changes Back: No back pain Musculoskeletal: Left shoulder and left hip pain. All other systems are reviewed and normal EXAM Physical Exam Narrative Exam Narrative: Physical exam Vitals reviewed General: Patient appears relatively comfortable. She is able to get up out of the wheelchair with some assistance but then she ambulated to the bed by herself. HEENT: No facial injury Head: No head injury Eyes: Extraocular movements intact Neck: No C-spine tenderness with full range of motion Heart: Regular rate normal pulses Chest wall: Mid chest wall midaxillary line tenderness over the ribs, no obvious contusion. There is a contusion over the left shoulder and anterior upper part of the left chest wall region. Lungs: Clear lungs bilaterally with normal inspiration and expiration without tachypnea GI: Abdomen is soft and nontender there is no mass no guarding no abdominal wall contusion : Stable pelvis Musculoskeletal: She has tenderness over the left deltoid but full range of motion, no specific pain at the AC joint. Full range of motion. She also has tenderness mostly over the left buttock and left greater trochanter of the left hip. No pain with logrolling or flexion or extension. Neurologically intact. She can bear weight on the left hip. Skin: Shoulder and left chest wall contusion as above otherwise no other abrasions or lacerations. Neurological: Patient is alert and oriented with no focal deficits Const Vital Signs: 03/18/22 09:41 03/18/22 10:48 Temperature 98.0 F Temperature Source Temporal Pulse Rate 73 Respiratory Rate 14 Respiratory Pattern Normal Blood Pressure 128/84 H Blood Pressure Mean 98 Pulse Ox 96 Oxygen Delivery Method Room Air MDM MDM Radiography Diagnostic Testing: Clinical Impression(s) from Imaging Studies Hip/Pelvis X-Ray 03/18/22 09:54 IMPRESSION: Left hip arthroplasty with heterotopic ossification without demonstrated periprosthetic fracture or dislocation. Electronically Signed: Ruben May MD at 10:40 EDT , Ribs w/Chest X-Ray 03/18/22 09:54 IMPRESSION: RIBS: Acute minimally displaced left 9th rib fracture CHEST: Acute minimally displaced fracture at the tip of the left clavicle Electronically Signed: Marlon Keller MD at 11:09 EDT , Shoulder X-Ray 03/18/22 09:54 IMPRESSION: Nondisplaced fracture of the distal clavicle. Electronically Signed: Ruben May MD at 10:48 EDT , Left hip x-ray interpreted by me shows a prosthetic hip without any fracture Left rib x-ray shows 1 single rib fracture slightly displaced Left shoulder x-ray interpreted by me shows distal clavicle fracture that is nondisplaced Treatment and Re-Evaluation Narrative: Patient has a clavicle fracture and a single rib fracture. Her fall was a week ago and she is still able to do most of her daily functions. 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 I will write her off for work, she can follow-up with her PCP and employee health. Discharge Plan Triage Chief Complaint: Other, Pain/Inj ED Provider: Luis Bustillos Dx/Rx/DC Orders Clinical Impression: Fall, Clavicle fracture, Closed rib fracture, Contusion of hip Prescriptions: New hydrocodone-acetaminophen 5-325 mg tablet 1 tab PO Q6H PRN (Reason: pain) 3 Days Qty: 12 0RF No Action estradiol 0.01 % (0.1 mg/gram) cream 1 g vaginal QWEEK lactase 9,000 unit tablet 9,000 unit PO QAC PRN Rx Instructions: administer with meals and/or snacks calcium carbonate-vit D3-min 600 mg calcium- 400 unit tablet 1 tab PO DAILY levothyroxine [Levoxyl] 100 MCG tablet 100 mcg PO DAILY Label Comments: THYROID ascorbic acid (vitamin C) [Vitamin C] 500 MG tablet 1,000 mg PO BIDCM Label Comments: SUPPLEMENT- LUNCH AND DINNER vitamin B complex 1 EACH capsule 1 ea PO DAILY Label Comments: SUPPLEMENT cholecalciferol (vitamin D3) 10,000 UNIT capsule 5,000 unit PO DAILY Label Comments: SUPPLEMENT multivitamin with folic acid [Thera] 1 TABLET tablet 1 tab PO DAILY Label Comments: SUPPLEMENT coenzyme Q10 [Co Q-10] 300 MG capsule 300 mg PO DAILY Active Enzymes 2 cap PO TID levetiracetam 500 mg tablet 500 mg PO BID Qty: 60 0RF Primary Care Provider: Hermann Lopes Referrals: eHrmann Lopes MD [Primary Care Provider] - 2 Days Disposition Disposition: Home, Self Care
== END 2022-03-18 12:20 | disposition home or self-care (01) ==
PROVIDERS: Emergency Provider Emergency Medicine; PCP Family Medicine; Visit Provider Emergency Medicine
DX: S42.002A Fracture of unspecified part of left clavicle, initial encounter for closed fracture (principal); S22.32XA Fracture of one rib, left side, initial encounter for closed fracture; S70.02XA Contusion of left hip, initial encounter; Z86.73 Personal history of transient ischemic attack (TIA), and cerebral infarction without residual deficits; W19.XXXA Unspecified fall, initial encounter
CPT/HCPCS: 71101; 73030; 73502; 99282

== ENCOUNTER → 2022-06-20 | Outpatient (CLI) | payer MEDICARE, SELFPAY ==
[2022-06-20 10:19] LABS: Hematocrit 39.1 % (37-47); Hemoglobin 13.5 g/dL (12.0-15.0); Mean Corp Hgb Conc 34.5 g/dL (32-36); Mean Corpuscular Hgb 31.4 pg (27.0-32.0); Mean Corpuscular Volume 90.9 fL (81-99); Platelet Count 224 K/mm3 (150-450); RBC Distribution Width CV 12.9 % (11.6-14.6); RBC Distribution Width SD 42.4 fl (35.1-43.9); White Blood Count 3.6 K/mm3 (4.4-11.0)
[2022-06-20 10:51] LABS: Vitamin B12 890 pg/mL (211-911)
[2022-06-20 11:36] LABS: ALB/GLOB Ratio 1.1 RATIO (0.9-2.4); AST(SGOT) 16 U/L (15-37); Alanine Aminotransfer ALT/SGPT 30 U/L (13-56); Albumin, Serum 3.6 g/dL (3.2-5.0); Alkaline Phosphatase 83 U/L (45-117); Anion Gap 6 (5-15); BUN 20 mg/dL (7-18); BUN/Creat Ratio 29.1 RATIO (10-20); Calcium,Total 8.8 mg/dL (8.5-10.1); Chloride 106 mmol/L (98-107); Creatinine, Serum 0.69 mg/dL (0.55-1.02); EST Glomerular Filtration Rate 89 mL/min (>60); Est Glom Filt Rate - Afr Amer 108 mL/min (>60); Globulin 3.2 g/dL (2.2-4.2); Glucose 84 mg/dL (74-106); Magnesium 2.3 mg/dL (1.6-2.6); Potassium 3.7 mmol/L (3.5-5.1); Protein, Total 6.8 g/dL (6.4-8.2); Sodium Level 140 mmol/L (136-145); Thyroid Stim Hormone (TSH) 2.31 uIU/mL (0.358-3.74)
[2022-06-25 16:39] LABS: Vitamin B1, Thiamine 137.1 nmol/L (66.5-200.0)
== END | disposition home or self-care (01) ==
LOC: MTLAB 08:27
PROVIDERS: PCP Family Medicine; Referring Provider Psychiatry & Neurology Neurology; Visit Provider Psychiatry & Neurology Neurology
DX: G40.909 Epilepsy, unspecified, not intractable, without status epilepticus (principal); E07.9 Disorder of thyroid, unspecified
CPT/HCPCS: 36415; 80053; 82607; 82746; 83735; 84425; 84443; 85027

== ENCOUNTER → 2022-07-03 | Outpatient (CLI) | payer MEDICARE, SELFPAY | END | disposition home or self-care (01) | LOC: PSN 08:01 | PROVIDERS: PCP Family Medicine; Referring Provider Psychiatry & Neurology Neurology; Visit Provider Psychiatry & Neurology Neurology | DX: G40.909 Epilepsy, unspecified, not intractable, without status epilepticus (principal) | CPT/HCPCS: 95819 ==

== ENCOUNTER 2022-08-16 10:30 | Outpatient (RCR) | payer OTHER, MEDICARE, SELFPAY ==
--- NOTE | 2022-05-24 15:46 | HP.PTEVAL ---
Patient's Visit Information RACHEL HARE is a 71 year old F referred to Physical Therapy by LUIS Clark with a diagnosis of H/O L HIP CONTUSION AND CLOSED L CLAVICLE FRACTURE. Date of Evaluation: 05/24/22 Physical Therapist: Fariha Savage PT, Cert MDT - Visit Plan Frequency: 2-3x /Week Duration: 4-6 Weeks Plan: *NO LIFTING > 25 LBS*. GAIT TRAINING. TERE UE AND LE ROM, STRETCHING AND STRENGTHENING TO HELP MEET SET GOALS. 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 STARTED BACK TO WORK ONE DAY A WEEK 3 WEEKS AGO. REPORTS SHE IS TRYING TO GET A SECOND JOB SINCE SHE CAN ONLY GET ONE DAY A WEEK AT [employer] NOW. Present symptoms: PATIENT REPORTS SHE IS GETTING AROUND SO MUCH BETTER BUT IT IS SLOWER THAN BEFORE THE FALL. L HIP PAIN IF SHE DOES TOO MANY STEPS AND SHE HAS A LOT OF STEPS AT HER BRAD'T AT HOME. SHE IS STILL GETTING SOME L SHOULDER PAIN TOO IF SHE DOES A LOT OF REACHING OR PUSHING. PATIENT REPORTS DECREASED PAIN WITH REST. Present since: MARCH 12 2022. Pain Scale: WORST 3/10, LEAST 0/10 FOR L HIP AND SHLD. Currently: L SHLD 3/10. Commenced as a result of: FALL AT [employer] - STEPPING OUT OF SHOWER. PATIENT REPORTS SHE GOT UP ON HER OWN. SHE REPORTS SHE KEPT WORKING. DID NOT GO TO THE DOCTOR UNTIL SEVERAL DAYS TO A WK LATER. Symptoms at onset: L SHLD, L RIB AND L HIP PAIN. Disturbed sleep: NOT DUE TO PAIN. Previous history/Previous treatment: TERE THR'S. NO L SHLD SX. Treatment this episode: REST AND WALKER. Gait: INTERMITTENT USE OF CANE NEEDED. DID NOT TAKE THE CANE TO WORK FRIDAY (8 HOURS). NO OTHER RECENT FALLS. Unexplained weight loss: NO. PMH/Recent major surgery: TERE THR'S. 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 INCREASED KYPHOSIS. EXTREME FH. ROUNDED SHLDS AND L SHLD LEVEL LOWER THAN RIGHT. NO TORTICOLLIS. Active Correction of posture: ONLY ABLE TO PARTIALLY CORRECT AND ATTEMPS HAVE NE ON L SHLD OR HIP PAIN. Other Observations: INDEP GAIT INTO PT WITH STRAIGHT CANE X > 300 FEET. NOT DEPENDENT ON CANE BUT HAS IT WITH HER. NO OBVIOUS LLE LIMP. DECREASED CADANCE. UP AND DOWN STEPS ONE AT A TIME LEADING UP WITH R LE AND COMING DOWN WITH L LE WITH ONE HANDRAIL. Sensory deficit: TERE UE AND LE LIGHT TOUCH SENSATION GROSSLY INTACT AND SYMMETRICAL. ROM deficit: TERE UE'S AND LE'S WFL. Motor deficit: TERE UE AND LE STRENGTH GROSSLY 4-5/5 WITH MMT'ING. Dural Signs: NEGATIVE TERE UE'S AND LE'S. Lumbar mvmt loss: flex - NIL. ext - FROILAN. R SG - MOD TO FROILAN. L SG - MOD TO FROILAN. Core strength: POOR. Palpation: NO ACUTE L SHLD OR HIP TENDERNESS. OTHER: PATIENT DEMO'S INDEP'LY BENDING OVER TO PICK SOMETHING UP OFF THE FLOOR WITHOUT LOSING HER BALANCE. PATIENT IS PLEASANT AND COOPERATIVE TO WORK WITH BUT IS TALKATIVE AND NEEDS FREQUENT CUES TO STAY FOCUSED ON QUESTIONS AND TO STAY ON TASK WITH TESTING. - Balance/Special Test Scores Lower Extremity Functional Score: 49 Quick DASH Score: 20.4525 TUG Test Time Seconds: 27.45 30 Second Chair Rise Test Seconds: 7 - Goals Goal 1:: PATIENT WILL COMPLETE 10 STANDS IN 30 SECS TO DEMONSTRATE IMPROVED FUNCTIONAL STRENGTH Goal Time Frame: 4-6 Weeks Goal 2:: PATIENT WILL COMPLETE TUG IN < 15 SECS TO DEMONSTRATE IMPROVED GAIT STABILITY Goal Time Frame: 4-6 Weeks Goal 3:: PATIENT WILL BE ABLE TO GO UP AND DOWN STEPS RECIPRICALLY WITHOUT HR SAFELY TO BE ABLE TO CARRY ITEMS ON STEPS. Goal Time Frame: 4-6 Weeks Goal 4:: INCREASE FUNCTIONAL STRENGTH OF TERE UE'S AND LE'S TO EASE ADL'S AND WORK FUNCTION. Goal 5:: PATIENT WILL BE INDEP WITH A HEP FOR CONTINUED IMPROVEMENT ONCE FORMAL PHYSICAL THERAPY CONCLUDES. - Anticipated Interventions Patient/Client Instruction: Educate patient on: Condition, Plan of Care, Risk Factors For the Purpose of:: To improve self management Therapeutic Exercise to Include: Strength training, Endurance training, Balance training, Body mechanics, Postural training, Flexibilty training, Gait and locomotor training, Neuromotor development, Dynamic Lumbar Stabilization, Scapular Strength/Stabilization For the Purpose of:: To decrease pain, To improve muscle performance and motor function, To improve performance and independence with ADL's, To improve ability of physical actions for home/community/work/leisure, To improve gait and locomotor functions Thank you for the opportunity to evaluate your patient. For Medicare and Medicare HMO plans, please review the plan of care and approve it. It will need to be FAXED BACK to us at [phone] for Medicare purposes. For Medicare only, by signing this I certify the plan of care. Please let me know if there are questions or concerns regarding this plan of care. Physician Signature: Date:
--- NOTE | 2022-06-26 14:02 | HP.PTREVAL ---
LUIS Clark, It has been my pleasure to treat RACHEL HARE over the last 10 visits for H/O L HIP CONTUSION AND CLOSED L CLAVICLE FRACTURE. Please see the progress note below for an update on the physical therapy plan of care! Subjective: PATIENT REPORTS SHE IS GETTING STRONGER BUT STILL HAVING SOME DIFFICULTY ON STEPS. ONLY HAS ONE HANDRAIL ON STEPS AT WORK. ALSO STILL HAVING SOME DIFFICULTY RISING FROM SITTING AND CONTROLLING SITTING DOWN. NO LONGER USING WALKER AT ALL AND ONLY USING CANE OCCASSIONALLY ON UNEVEN SURFACES. Objective/Function: PATIENT WAS SEEN TODAY FOR RE-ASSESSMENT OF PROGRESS TOWARD THE SET PT GOALS AND THE NEED FOR FURTHER PHYSICAL THERAPY VS READINESS FOR DISCHARGE. PATIENT IS A GOOD CANDIDATE TO CONTINUE PT BASED ON PROGRESS MADE AND ROOM FOR FURTHER IMPROVEMENT. PATIENT IS AGREEABLE. UPON EXAM TODAY: PATIENT DEMO'S INDEP GAIT INTO PT WITHOUT ANY ASSISTIVE DEVICES OR LOSS OF BALANCE AND CARRYING A HEAVY PURSE, A BAG AND A JACKET. NO OBVIOUS LLE LIMP. FAIR CADANCE. UP AND DOWN STEPS ONE AT A TIME LEADING UP WITH R LE AND COMING DOWN WITH L LE WITH ONE HANDRAIL. NOW ABLE TO GO UP STEPS RECIPRICALLY BUT NEEDS TWO HANDRAILS. C/O KNEE PAIN WITH RECIPRICAL PATTERN. REPORTS SHE GOES ONE AT A TIME AT WORK DUE TO ONLY ONE HR. ROM deficit: TERE UE'S AND LE'S WFL. Motor deficit: TERE UE AND LE STRENGTH GROSSLY 4-5/5 WITH MMT'ING. GOOD IMPROVEMENT IN TUG TIME AND STS REPS - SEE BELOW. Plan Plan: PROGRESS LE STRENGTHENING TOLERATED. *NO LIFTING > 25 LBS*. GAIT TRAINING. TERE UE AND LE ROM, STRETCHING AND STRENGTHENING TO HELP MEET SET GOALS. Balance/Gait/Functional tests - Balance/Special Test Scores Lower Extremity Functional Score: 50 Quick DASH Score: 20.4525 TUG Test Time Seconds: 13.21 Tug Test: <20 sec.=mostly independent 30 Second Chair Rise Test Seconds: 9 Goals Goal 1:: PATIENT WILL COMPLETE 10 STANDS IN 30 SECS TO DEMONSTRATE IMPROVED FUNCTIONAL STRENGTH Goal Time Frame: 4-6 Weeks Goal Progress: Progressing Goal 2:: PATIENT WILL COMPLETE TUG IN < 15 SECS TO DEMONSTRATE IMPROVED GAIT STABILITY Goal Time Frame: 4-6 Weeks Goal Progress: Goal Met Goal 3:: PATIENT WILL BE ABLE TO GO UP AND DOWN STEPS RECIPRICALLY WITH ONE HR SAFELY TO BE ABLE TO CARRY ITEMS ON STEPS. Goal Time Frame: 4-6 Weeks Goal Progress: Progressing Goal 4:: INCREASE FUNCTIONAL STRENGTH OF TERE UE'S AND LE'S TO EASE ADL'S AND WORK FUNCTION. Goal Time Frame: 4-6 Weeks Goal Progress: Progressing Goal 5:: PATIENT WILL BE INDEP WITH A HEP FOR CONTINUED IMPROVEMENT ONCE FORMAL PHYSICAL THERAPY CONCLUDES. Goal Time Frame: 4-6 Weeks Goal Progress: Progressing Anticipated Interventions Patient/Client Instruction: Educate patient on: Condition, Plan of Care, Risk Factors For the Purpose of:: To improve self management Therapeutic Exercise to Include: Strength training, Endurance training, Balance training, Body mechanics, Postural training, Flexibilty training, Gait and locomotor training, Neuromotor development, Dynamic Lumbar Stabilization, Scapular Strength/Stabilization For the Purpose of:: To decrease pain, To improve muscle performance and motor function, To improve performance and independence with ADL's, To improve ability of physical actions for home/community/work/leisure, To improve gait and locomotor functions Please do not hesitate to contact me at [phone] by phone or if you have questions or concerns regarding this new plan of care! Sincerely, Fariha Savage, PT, Cert MDT
--- NOTE | 2022-08-16 11:20 | HP.PTDCSUM ---
It has been my pleasure to treat RACHEL HARE referred by LUIS Clark, with the diagnosis of H/O L HIP CONTUSION AND CLOSED L CLAVICLE FRACTURE for a total of 18 visit(s). Discharge Date: 08/16/22 Please see the following information for a summary of their discharge status. Subjective: PATIENT REPORTS THERAPY HAS HELPED A LOT AND SHE FEELS READY TO BE DISCHARGED. MY GOALS HAVE BEEN MET. PATIENT REPORTS SHE STILL HAS TO USE ONE HR SOMETIMES AT WORK AND SOMETIMES GOES ONE STEP AT A TIME BUT SHE ALSO DID THAT SOME BEFORE THE FALL TOO. PATIENT REPORTS SHE IS WORKING ABOUT 30 HOURS A WEEK FOR [employer] NOW. % Improvement: 100 Objective/Function: PATIENT WAS SEEN TODAY FOR RE-ASSESSMENT OF PROGRESS TOWARD THE SET PT GOALS AND THE NEED FOR FURTHER PHYSICAL THERAPY VS READINESS FOR DISCHARGE. ALL GOALS HAVE BEEN MET AND PATIENT IS APPROPRIATE FOR AND AGREEABLE TO DISCHARGE TO [facility]. UPON EXAM TODAY: PATIENT SHONDA'S INDEP GAIT INTO PT WITHOUT ANY ASSISTIVE DEVICES OR LOSS OF BALANCE AND CARRYING A HEAVY PURSE, A BAG AND A JACKET. NO OBVIOUS LLE LIMP. FAIR CADANCE. SHE DEMO'S ABILITY TO GO UP AND DOWN STEPS RECIPRICALLY BUT REQUIRES ONE HR ASSIST. NO C/O PAIN ON STEPS TODAY. ROM deficit: TERE UE'S AND LE'S WFL. Motor deficit: TERE UE AND LE STRENGTH GROSSLY 4-5/5 WITH MMT'ING. GOOD IMPROVEMENT IN TUG TIME AND STS REPS - SEE BELOW. Goal 1:: PATIENT WILL COMPLETE 10 STANDS IN 30 SECS TO DEMONSTRATE IMPROVED FUNCTIONAL STRENGTH Goal Progress: Goal Met Goal 2:: PATIENT WILL COMPLETE TUG IN < 15 SECS TO DEMONSTRATE IMPROVED GAIT STABILITY Goal Progress: Goal Met Goal 3:: PATIENT WILL BE ABLE TO GO UP AND DOWN STEPS RECIPRICALLY WITH ONE HR SAFELY TO BE ABLE TO CARRY ITEMS ON STEPS. Goal Progress: Goal Met Goal 4:: INCREASE FUNCTIONAL STRENGTH OF TERE UE'S AND LE'S TO EASE ADL'S AND WORK FUNCTION. Goal Progress: Goal Met Goal 5:: PATIENT WILL BE INDEP WITH A HEP FOR CONTINUED IMPROVEMENT ONCE FORMAL PHYSICAL THERAPY CONCLUDES. Goal Progress: Goal Met Plan: D/C. PATIENT AGREEABLE. If there are questions or concerns regarding this patient's physical therapy, please feel free to call me at [phone]. Thank you for the referral of this patient. Sincerely, Fariha Savage, PT, Cert MDT Balance/Gait/Functional tests - Balance/Special Test Scores Lower Extremity Functional Score: 63 Quick DASH Score: 20.4525 TUG Test Time Seconds: 9.98 Tug Test: <10 sec.=free mobile 30 Second Chair Rise Test Seconds: 12
== END 2022-08-16 19:00 | disposition home or self-care (01) ==
LOC: PT 10:30
PROVIDERS: PCP Family Medicine; Referring Provider Physician Assistant Surgical; Visit Provider Physician Assistant Surgical
DX: S70.00XD Contusion of unspecified hip, subsequent encounter (principal); S42.009D Fracture of unspecified part of unspecified clavicle, subsequent encounter for fracture with routine healing
CPT/HCPCS: 97110; 97162; 97164; 97530

== ENCOUNTER → 2025-03-29 | Outpatient (CLI) | payer MEDICARE, SELFPAY ==
[2025-03-29 17:59] LABS: Hematocrit 37.2 % (37-47); Hemoglobin 12.7 g/dL (12.0-15.0); Immature Granulocytes Count 0.020 X10^3/uL (0.0-0.0); Mean Corp Hgb Conc 34.1 g/dL (32-36); Mean Corpuscular Volume 90.7 fL (81-99); Mean Platelet Vol. 9.3 fl (6.2-12.0); NRBC Flagged by Analyzer 0 % (0-5); Platelet Count 244 K/mm3 (150-450); RBC Distribution Width CV 12.5 % (11.6-14.6); RBC Distribution Width SD 41.1 fl (35.1-43.9); Red Blood Count 4.10 M/mm3 (4.2-5.4); White Blood Count 5.0 K/mm3 (4.4-11.0)
[2025-03-29 18:56] LABS: AST(SGOT) 22 U/L (<=31); Alanine Aminotransfer ALT/SGPT 27 U/L (<=34); Albumin, Serum 4.3 g/dL (3.4-4.8); Alkaline Phosphatase 79 U/L (35-104); Anion Gap 12 (5-15); BUN 19 mg/dL (4-19); BUN/Creat Ratio 25.4 RATIO (10-20); Calcium,Total 9.3 mg/dL (7.6-11.0); Carbon Dioxide 26.0 mmol/L (21.0-32.0); Chloride 103 mmol/L (98-108); Globulin 2.4 g/dL (2.2-4.2); Glucose 91 mg/dL (70-99); Potassium 3.8 mmol/L (3.3-5.1)
== END | disposition home or self-care (01) ==
LOC: MFPLAB 16:10
PROVIDERS: PCP Family Medicine; Referring Provider Family Medicine; Visit Provider Family Medicine
DX: E03.9 Hypothyroidism, unspecified (principal); R63.4 Abnormal weight loss
CPT/HCPCS: 36415; 80053; 84439; 84443; 85025

== ENCOUNTER → 2025-06-21 | Outpatient (CLI) | payer MEDICARE, SELFPAY | END | disposition home or self-care (01) | LOC: MTLAB 15:30 | PROVIDERS: PCP Family Medicine; Referring Provider Family Medicine; Visit Provider Family Medicine | DX: E03.9 Hypothyroidism, unspecified (principal) | CPT/HCPCS: 36415; 84439 ==